=== PATIENT | male | born 1945 | race Caucasian/White ===

== ENCOUNTER 2018-12-21 23:59 | Emergency (ER) | payer OTHER ==
--- OUTSIDE RECORDS SUMMARY | 2018-12-22 00:06 | XMS REPORT ---
:1945 [facility] Address [address] [place] [address] [address]. [address] [place] [address] Care Team Providers Name Role Phone Unavailable Unavailable Unavailable Problems This patient has no known problems. Allergies, Adverse Reactions, Alerts This patient has no known allergies or adverse reactions. Medications This patient has no known medications.
--- OUTSIDE RECORDS SUMMARY | 2018-12-22 00:07 | XMS REPORT | Summary of Care ---
:1945 Author Organization [facility] - Health Address [address] [place] [address] Care Team Providers Name Role Phone Peter Melendez Primary Care Provider Reason for Visit Reason Comments Follow-up Diabetes Encounter Details Date Type Department Care Team Description 12/18/2018 Telephone [facility] Nazia Carrillo, RN Follow-up (Diabetes) [address] [place] [id number] Allergies No Known Allergiesdocumented as of this encounter (statuses as of 12/18/2018) Medications Medication Sig Dispensed Refills Start Date End Date Status GUANFACINE 1 MG ORAL once daily 0 Active TAB VERAPAMIL 360 MG ORAL once daily 0 Active C24P COQ10 SG 100 ORAL None Entered 0 Active CHOLEST OFF ORAL None Entered 0 Active CINNAMON ORAL None Entered 0 Active FISH OIL ORAL None Entered 0 Active LISINOPRIL 40 MG ORAL 1 by mouth 1 month supply 6 11/19/2008 Active TABIndications: every day Essential hypertension, benign HAWTHORN EXTRACT ORAL Take by 0 Active mouth. blood sugar before meals 3 Box 3 04/14/2010 Active diagnostic (PRECISION and at XTRA TEST) bedtime. stripIndications: 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) Insulin [place], before meals 3 Box 3 04/14/2010 Active Disposable, (BD and at INSULIN PEN NEEDLE bedtime. 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 atorvastatin 10 mg Take 10 mg by 0 Active tablet mouth at bedtime. irbesartan-hydrochlor Take 1 tablet 0 Active othiazide 300-12.5 mg by mouth per tablet daily. Magnesium Oxide 500 Take 2 0 Active mg Tab tablets by mouth daily. coconut oil 1,000 mg Take 4,000 mg 0 Active Cap by mouth daily. selenium 200 mcg Cap Take 1 0 Active capsule by mouth daily. folic acid 800 mcg Take 800 mcg 0 Active tablet by mouth daily. Alpha Lipoic Acid 200 Take 400 mg 0 Active mg Tab by mouth daily. Glucosamine Sulfate Take 2,000 mg 0 Active 1,000 mg Cap by mouth daily. turmeric root extract Take 1,000 mg 0 Active 500 mg Cap by mouth daily. prasterone, dhea, Take 100 mg 0 Active (DHEA) 50 mg Tab by mouth daily. Lycopene 10 mg Cap Take 20 mg by 0 Active mouth daily. BETA CAROTENE ORAL Take 25,000 0 Active Units by mouth daily. red yeast rice 600 mg Take 1,200 mg 0 Active Tab by mouth daily. DIPHENHYDRAMINE HCL Take 500 mg 0 Active (QUENALIN ORAL) by mouth daily. Garlic 1,000 mg Cap Take 1 0 Active capsule by mouth daily. vitamin C with uriel Take 1,000 mg 0 Active hips (VITAMIN C) by mouth 1,000 mg tablet daily. Ginkgo Biloba 120 mg Take 1 tablet 0 Active Tab by mouth daily. cholecalciferol, Take 1 tablet 0 Active vitamin D3, 10,000 by mouth unit Tab daily. coenzyme Q10 (CO Take 100 mg 0 Active Q-10) 100 mg softgel by mouth daily. FENUGREEK SEED Take 1,220 mg 0 Active EXTRACT ORAL by mouth daily. insulin lispro inject 15-22 3 Box 3 01/06/2018 Active (HUMALOG KWIKPEN Units under INSULIN) 100 unit/mL the skin 3 pen injector (three) times daily before meals. losartan-hydrochlorot 0 06/15/2018 Active hiazide 100-12.5 mg per tablet finasteride 5 mg Take 1 tablet 30 tablet 2 12/07/2018 Active tabletIndications: by mouth Gross hematuria, Type daily. 2 diabetes mellitus with complication, with long-term current use of insulin tamsulosin 0.4 mg 24 Take 1 30 capsule 2 12/07/2018 Active hr capsule by capsuleIndications: mouth daily. Gross hematuria, Type 2 diabetes mellitus with complication, with long-term current use of insulin docusate 100 mg Take 1 30 capsule 0 12/07/2018 Active capsuleIndications: capsule by Gross hematuria, Type mouth daily. 2 diabetes mellitus with complication, with long-term current use of insulin acetaminophen Take 2 40 tablet 0 12/07/2018 12/07/2019 Active (TYLENOL) 325 mg tablets by tabletIndications: mouth every 6 Gross hematuria, Type (six) hours 2 diabetes mellitus as needed for with complication, Pain (scale with long-term 1-3) or Pain current use of (scale 4-6). insulin oxybutynin chloride 5 Take 1 tablet 10 tablet 2 12/07/2018 Active mg tabletIndications: by mouth 2 Gross hematuria, Type (two) times 2 diabetes mellitus daily as with complication, needed for with long-term Bladder current use of spasms. insulin Insulin Glargine inject 25 45 mL 1 12/13/2018 Active (LANTUS SOLOSTAR Units under U-100 INSULIN) 100 the skin 2 unit/mL (3 mL) (two) times injectionIndications: daily. Type 2 diabetes mellitus with complication, with long-term current use of insulin documented as of this encounter (statuses as of 12/18/2018) Active Problems Problem Noted Date Gross hematuria 12/06/2018 Immunization counseling 05/01/2017 Type 2 diabetes mellitus with complication 05/01/2017 Essential hypertension 05/01/2017 Pain in both hands 05/01/2017 Bursitis, subacromial 05/01/2017 Type II or unspecified type diabetes mellitus with renal manifestations, 02/07 uncontrolled(250.42) Essential Hypertension, Benign 01/03/2009 documented as of this encounter (statuses as of 12/18/2018) Resolved Problems Problem Noted Date Resolved Date Polyarthralgia 05/01/2017 05/01/2017 Type II or unspecified type diabetes mellitus with 09/21/2008 02/07/2009 neurological manifestations, uncontrolled(250.62) documented as of this encounter (statuses as of 12/18/2018) Social History Tobacco Use Types Packs/Day Years Used Date Never Smoker Smokeless Tobacco: Never Used Alcohol Use Drinks/Week oz/Week Comments No Sex Assigned at Date Recorded Not on file Job Start Date Occupation Industry Not on file Not on file Not on file Travel History Travel Start Travel End No recent travel history available. documented as of this encounter Last Filed Vital Signs Not on filedocumented in this encounter Plan of Treatment Date Type Specialty Care Team Description 01/12/2019 Office Visit Urology Eloisa Scott FNP [address] [place] [address] [phone] 03/20/2019 Office Visit Endocrinology Diabetes & Reji Moise Metabolism [address] [place] [address] [phone] Health Maintenance Due Date Last Done Comments EYE EXAM 1955 DTaP,Tdap,and Td Vaccines (1 - 01/22/1964 Tdap) COLONOSCOPY 1995 Zoster Recombinant Vaccine 1995 (SHINGRIX) (1 of 2) Medicare Wellness Visit 2010 PNEUMOCOCCAL VACCINES 65+ (1 of 2 2010 - PCV13) INFLUENZA VACCINE (#1) 2018 HgA1C 06/05/2019 12/05/2018, 08/13/2018, 07/11/2018, Additional history exists FOOT EXAM 07/12/2019 07/11/2018, 07/11/2018, 03/07/2018, Additional history exists LDL-C 08/14/2019 08/13/2018 URINE MICROALBUMIN 08/14/2019 08/13/2018 CREATININE (SERUM) 12/07/2019 12/06/2018, 12/05/2018, 11/03/2018, Additional history exists HEPATITIS C (HCV) SCREEN Completed 11/03/2018 documented as of this encounter Implants Implanted Type Area Medical Esthetician Device Shelf Model / Serial Identifier Expiration / Lot Date Acrysof Iq LENS Right: Kartik 12/29/2020 [id number] / Implanted: Qty: 1 on 10/31/2016 by Philip Gonzalez MD at [facility] [id number] / [id number] Lens LENS Left: Eye Kartik 06/29/2021 [id number] / Implanted: Qty: 1 on 12/05/2016 by Philip Gonzalez MD at [facility] [id number] / [id number] documented as of this encounter Results Not on filedocumented in this encounter Insurance Payer Benefit Plan / Subscriber ID Effective Dates Phone Address Type Group MEDICARE MEDICARE PART A xxxxxxxxxxx 2009-[place] [phone] Medicare & [address] nt [id number] [place] [id number] AETNA AETNA INDEMNITY [id number] 2009-[place] Indemnity nt documented as of this encounter
--- OUTSIDE RECORDS SUMMARY | 2018-12-22 00:08 | XMS REPORT | Summary of Care ---
:1945 Author Organization [facility] - Health Address [address] [place] [address] Care Team Providers Name Role Phone Peter Melendez Primary Care Provider Reason for Visit Reason Comments Follow-up Diabetes Encounter Details Date Type Department Care Team Description 12/09/2018 Telephone [facility] Nazia Carrillo, RN Follow-up (Diabetes) [address] [place] [id number] Allergies No Known Allergiesdocumented as of this encounter (statuses as of 12/18/2018) Medications Medication Sig Dispensed Refills Start Date End Date Status GUANFACINE 1 MG ORAL once daily 0 Active TAB VERAPAMIL 360 MG once daily 0 Active ORAL C24P COQ10 SG 100 ORAL None Entered 0 Active CHOLEST OFF ORAL None Entered 0 Active CINNAMON ORAL None Entered 0 Active FISH OIL ORAL None Entered 0 Active LISINOPRIL 40 MG 1 by mouth 1 month supply 6 11/19/2008 Active ORAL TABIndications: every day Essential hypertension, benign HAWTHORN EXTRACT Take by 0 Active ORAL mouth. blood sugar before meals 3 Box 3 04/14/2010 Active diagnostic and at (PRECISION XTRA bedtime. 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 atorvastatin 10 mg Take 10 mg 0 Active tablet by mouth at bedtime. irbesartan-hydrochlo Take 1 0 Active rothiazide 300-12.5 tablet by mg per tablet mouth daily. Magnesium Oxide 500 Take 2 0 Active mg Tab tablets by mouth daily. coconut oil 1,000 mg Take 4,000 0 Active Cap mg by mouth daily. selenium 200 mcg Cap Take 1 0 Active capsule by mouth daily. folic acid 800 mcg Take 800 mcg 0 Active tablet by mouth daily. Alpha Lipoic Acid Take 400 mg 0 Active 200 mg Tab by mouth daily. Glucosamine Sulfate Take 2,000 0 Active 1,000 mg Cap mg by mouth daily. turmeric root Take 1,000 0 Active extract 500 mg Cap mg by mouth daily. prasterone, dhea, Take 100 mg 0 Active (DHEA) 50 mg Tab by mouth daily. Lycopene 10 mg Cap Take 20 mg 0 Active by mouth daily. BETA CAROTENE ORAL Take 25,000 0 Active Units by mouth daily. red yeast rice 600 Take 1,200 0 Active mg Tab mg by mouth daily. DIPHENHYDRAMINE HCL Take 500 mg 0 Active (QUENALIN ORAL) by mouth daily. Garlic 1,000 mg Cap Take 1 0 Active capsule by mouth daily. vitamin C with uriel Take 1,000 0 Active hips (VITAMIN C) mg by mouth 1,000 mg tablet daily. Ginkgo Biloba 120 mg Take 1 0 Active Tab tablet by mouth daily. cholecalciferol, Take 1 0 Active vitamin D3, 10,000 tablet by unit Tab mouth daily. coenzyme Q10 (CO Take 100 mg 0 Active Q-10) 100 mg softgel by mouth daily. FENUGREEK SEED Take 1,220 0 Active EXTRACT ORAL mg by mouth daily. insulin lispro inject 15-22 3 Box 3 01/06/2018 Active (HUMALOG KWIKPEN Units under INSULIN) 100 unit/mL the skin 3 pen injector (three) times daily before meals. losartan-hydrochloro 0 06/15/2018 Active thiazide 100-12.5 mg per tablet finasteride 5 mg Take 1 30 tablet 2 12/07/2018 Active tabletIndications: tablet by Gross hematuria, mouth daily. Type 2 diabetes mellitus with complication, with long-term current use of insulin tamsulosin 0.4 mg 24 Take 1 30 capsule 2 12/07/2018 Active hr capsule by capsuleIndications: mouth daily. Gross hematuria, Type 2 diabetes mellitus with complication, with long-term current use of insulin docusate 100 mg Take 1 30 capsule 0 12/07/2018 Active capsuleIndications: capsule by Gross hematuria, mouth daily. Type 2 diabetes mellitus with complication, with long-term current use of insulin acetaminophen Take 2 40 tablet 0 12/07/2018 12/07/19 Active (TYLENOL) 325 mg tablets by 20 tabletIndications: mouth every Gross hematuria, 6 (six) Type 2 diabetes hours as mellitus with needed for complication, with Pain (scale long-term current 1-3) or Pain use of insulin (scale 4-6). oxybutynin chloride Take 1 10 tablet 2 12/07/2018 Active 5 mg tablet by tabletIndications: mouth 2 Gross hematuria, (two) times Type 2 diabetes daily as mellitus with needed for complication, with Bladder long-term current spasms. use of insulin Insulin Glargine inject 27 2 Box 3 04/14/2010 12/14/19 Discontinued (LANTUS SOLOSTAR) Units under 19 100 unit/mL (3 mL) the skin at InPnIndications: bedtime. 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) documented as of this encounter (statuses as [...] [address] [place] [address] [phone] 03/20/2019 Office Visit Endocrinology Diabetes & Reji Moise Metabolism [address] [place] [address] [phone] Health Maintenance Due Date Last Done Comments [...] of this encounter Implants Implanted Type Area Entry Level Financial Analyst Device Shelf Model / Serial Identifier Expiration / Lot Date Acrysof Iq LENS Right: Kartik 12/29/2020 [id number] / Implanted: Qty: 1 on 10/31/2016 by Philip Gonzalez MD at [facility] [id number] / [id number] Lens LENS Left: Eye Kartik 06/29/2021 [id number] / Implanted: Qty: 1 on 12/05/2016 by Philip Gonzalez MD at [facility] [id number] / [id number] documented as of this encounter Results Not on filedocumented in this encounter Insurance Payer Benefit Plan / Subscriber ID Effective Dates Phone Address Type Group MEDICARE MEDICARE PART A xxxxxxxxxxx 2009-[place] [phone] Medicare & B nt [id number] [place] [id number] AETNA AETNA INDEMNITY [id number] 2009-[place] Indemnity nt documented as of this encounter
--- OUTSIDE RECORDS SUMMARY | 2018-12-22 00:08 | XMS REPORT | Summary of Care ---
:1945 Author Organization [facility] - [facility] Address [address] [place] [id number] Care Team Providers Name Role Phone Peter Melendez Primary Care Provider Reason for Visit Reason Comments Refill Request Encounter Details Date Type Department Care Team Description 12/19/2018 Telephone [facility] Endocrinology- Reji Moise Refill Request [address] Professional Office [address] [place] [address] [place] [address] [address] [place] [address] Allergies No Known Allergiesdocumented as of this encounter (statuses as of 12/19/2018) Medications Medication Sig Dispensed Refills Start Date [...] diabetes mellitus with renal manifestations, uncontrolled(250.42) Insulin [place], before meals 3 Box 3 04/14/2010 Active [...] spasms. use of insulin Insulin Glargine inject 25 45 mL 1 12/19/2018 Active (LANTUS SOLOSTAR Units under U-100 INSULIN) 100 the skin 2 unit/mL (3 mL) (two) times injectionIndications daily. : Type 2 diabetes mellitus with complication, with long-term current use of insulin Insulin Glargine inject 25 45 mL 1 12/13/2018 12/20/19 Discontinued (LANTUS SOLOSTAR Units under 19 U-100 INSULIN) 100 the skin 2 unit/mL (3 mL) (two) times injectionIndications daily. : Type 2 diabetes mellitus with complication, with long-term current use of insulin documented as of this encounter (statuses as of 12/19/2018) Active Problems Problem Noted Date Gross hematuria 12/06/2018 Immunization counseling 05/01/2017 Type 2 diabetes mellitus with complication 05/01/2017 Essential hypertension 05/01/2017 Pain in both hands 05/01/2017 Bursitis, subacromial 05/01/2017 Type II or unspecified type diabetes mellitus with renal manifestations, 02/07 uncontrolled(250.42) Essential Hypertension, Benign 01/03/2009 documented as of this encounter (statuses as of 12/19/2018) Resolved Problems Problem Noted Date Resolved Date Polyarthralgia 05/01/2017 05/01/2017 Type II or unspecified type diabetes mellitus with 09/21/2008 02/07/2009 neurological manifestations, uncontrolled(250.62) documented as of this encounter (statuses as of 12/19/2018) Social History Tobacco Use Types Packs/Day Years [...] Team Description 01/12/2019 Office Visit Urology Eloisa Scott, WASH TANK TENDER [address] [address] [place], [place] [address] 03/20/2019 Office Visit Endocrinology Diabetes & Reji Moise Metabolism [address] [place] [address] [address] [place], [place] [phone] Health Maintenance Due Date Last Done Comments [...] of this encounter Implants Implanted Type Area Basic Combatant Swimmer Device Shelf Model / Serial Identifier Expiration / Lot Date Acrysof Iq LENS Right: Kartik 12/29/2020 [id number] / Implanted: Qty: 1 on 10/31/2016 by Philip Gonzalez MD at [facility] [id number] / [id number] Lens LENS Left: Eye Kartik 06/29/2021 [id number] / Implanted: Qty: 1 on 12/05/2016 by Philip Gonzalez MD at [facility] [id number] / [id number] documented as of this encounter Results Not on filedocumented in this encounter Visit Diagnoses Diagnosis Type 2 diabetes mellitus with complication, with long-term current use of insulin documented in this encounter Insurance Payer Benefit Plan / Subscriber ID Effective Dates Phone Address Type Group MEDICARE MEDICARE PART A xxxxxxxxxxx 2009Patrizia [phone] Medicare & B nt 82 [id number] [place] [id number] AETNA AETNA INDEMNITY [id number] 2009Patrizia Indemnity nt documented as of this encounter
[2018-12-22 00:24] LABS: Urine Blood 2+ (NEG); Urine Glucose 2+ (NEG); Urine Protein 2+ (NEG)
[2018-12-22 01:05] LABS: Absolute Lymphocytes (CBC) 0.8 K/uL (0.7-4.9); Basophils % 0.3 % (0-1.3); Hematocrit 37.5 % (39.6-49.0); MPV 7.5 fL (7.6-11.3); RBC Red Blood Cell Count 4.43 M/uL (4.33-5.43)
[2018-12-22 01:28] LABS: Albumin 2.9 g/dL (3.4-5.0); Bilirubin Direct 0.1 mg/dL (0-0.2); Bilirubin Total 0.3 mg/dL (0.2-1.0); CKMB Creatine Kinase MB 1.2 ng/mL (0.3-3.6); Potassium 4.1 mmol/L (3.5-5.1); Protein, Total 6.6 g/dL (6.4-8.2)
[2018-12-22 01:33] LABS: Urine Bacteria <20 /HPF (NONE SEEN); Urine Culture Reflex Order NOT NEEDED; Urine RBC >50 /HPF (NONE SEEN)
--- NOTE | 2018-12-22 02:31 | ER ---
Nurse's Notes [facility] Name: Lito Powell Age: 73 yrs Sex: Male : 1945 Arrival Date: 12/22/2018 Time: 00:04 Bed 2 Private MD: Diagnosis: Bronchitis, not specified as acute or chronic Presentation: 12/22 00:05 Presenting complaint: EMS states: they were toned out for report of pt having fever bb after having TURP procedure by Dr Camarillo on the . On their arrival pt's temp was 102.5 he had taken tylenol approx 45 mins prior to their arrival. Transition of care: patient was not received from another setting of care. Onset of symptoms was December 22, 2018. Risk Assessment: Do you want to hurt yourself or someone else? Patient reports no desire to harm self or others. Initial Sepsis Screen: Does the patient meet any 2 criteria? No. Patient's initial sepsis screen is negative. Does the patient have a suspected source of infection? Yes: Catheter related infection (Dueñas/dialysis/PICC/central line). Care prior to arrival: IV initiated. 18 GA, in the right antecubital area. 00:05 Method Of Arrival: EMS: [facility] bb 00:05 Acuity: LADONNA 2 bb Triage Assessment: 01:10 General: Appears in no apparent distress. Behavior is calm, cooperative. Pain: Denies ak1 pain. EENT: No signs and/or symptoms were reported regarding the EENT system. Neuro: Level of Consciousness is awake, alert, obeys commands, Oriented to person, place, time, situation, Moves all extremities. Speech is normal. Historical: - Allergies: 00:14 No Known Allergies; bb - Home Meds: 00:14 Cardizem Oral [Active]; amlodipine oral [Active]; Lantus Sub-Q [Active]; valsartan oral bb oral [Active]; Plavix Oral [Active]; Magnesium Oxide Oral [Active]; aspirin 81 mg Oral chew [Active]; multiple supplements [Active]; - PMHx: 00:14 BPH; Diabetes - IDDM; Hypertension; CAD; bb - PSHx: 00:14 CABG; TURP; Bunionectomy; bb - Immunization history:: Adult Immunizations unknown. - Social history:: Smoking status: Patient/guardian denies using tobacco, Patient/guardian denies using alcohol. - Ebola Screening: : No symptoms or risks identified at this time. Screenin:26 Abuse screen: Denies threats or abuse. Denies injuries from another. Nutritional rr5 screening: No deficits noted. Tuberculosis screening: No symptoms or risk factors identified. Fall Risk IV access (20 points). Total Bolden Fall Scale indicates No Risk (0-24 pts). Assessment: 01:12 Reassessment: Patient appears in no apparent distress at this time. No changes from ak1 previously documented assessment. Patient and/or family updated on plan of care and expected duration. Pain level reassessed. Patient is alert, oriented x 3, equal unlabored respirations, skin warm/dry/pink. General: Appears in no apparent distress. Behavior is calm, cooperative. 02:55 Reassessment: Patient appears in no apparent distress at this time. Patient and/or rr5 family updated on plan of care and expected duration. Pain level reassessed. Patient is alert, oriented x 3, equal unlabored respirations, skin warm/dry/pink. ED provider spoke to dr. camarillo with order to remove the dueñas catheter. 03:00 Reassessment: Patient appears in no apparent distress at this time. Patient and/or rr5 family updated on plan of care and expected duration. Pain level reassessed. Patient is alert, oriented x 3, equal unlabored respirations, skin warm/dry/pink. for discharge awaiting for the flu test result. 03:20 Reassessment: reassess by ED provider patient can go home. rr5 04:10 Reassessment: Patient appears in no apparent distress at this time. Patient and/or rr5 family updated on plan of care and expected duration. Pain level reassessed. Patient is alert, oriented x 3, equal unlabored respirations, skin warm/dry/pink. discharge instruction given and explained to patient without complaints made, verbalized understanding. Vital Signs: 00:14 BP 158 / 76; Pulse 89; Resp 16 S; Temp 97.9(O); Pulse Ox 95% on R/A; Weight 83.91 kg bb (R); Height 5 ft. 11 in. (180.34 cm) (R); Pain 6/10; 01:11 BP 154 / 71; Pulse 83; Resp 20; Pulse Ox 95% on R/A; ak1 02:00 BP 146 / 85; Pulse 80; Resp 19; Pulse Ox 98% ; rr5 03:00 BP 159 / 89; Pulse 79; Resp 16; Pulse Ox 100% ; rr5 04:00 BP 141 / 70; Pulse 80; Resp 17; Temp 97.8; Pulse Ox 99% ; Pain 0/10; rr5 00:14 Body Mass Index 25.80 (83.91 kg, 180.34 cm) bb ED Course: 00:04 Patient arrived in ED. em1 00:05 All Wakefield MD is Attending Physician. tw4 00:10 Triage completed. bb 00:10 Maintain EMS IV. Dressing intact. Good blood return noted. Site clean \T\ dry. Gauge \T\ rr 5 site: G 18 at right Ac. 00:10 in with Dueñas catheter connected to urine bag, draining yellow arvind in color urine. rr5 00:14 Arm band placed on Patient placed in an exam room, on a stretcher, on quality assurance monitor chassis, bb on pulse oximetry. EKG completed in triage. Results shown to MD. 00:15 Inserted saline lock: 20 gauge in left forearm, using aseptic technique. Blood rr5 collected. 00:15 First set of blood cultures drawn by me. rr5 01:10 Arvind Chowdary, RN is Primary Nurse. ak1 01:10 Patient has correct armband on for positive identification. Placed in gown. Bed in low ak1 position. Call light in reach. Side rails up X2. Adult w/ patient. potline monitor on. Pulse ox on. NIBP on. 01:15 Second set of blood cultures drawn by me. rr5 01:56 Chest Single View XRAY In Process Unspecified. EDMS 02:50 Flu and/or RSV swab sent to lab. rr5 02:55 Patient tolerated well. Dueñas cath removed intact, balloon deflated. rr5 04:14 No provider procedures requiring assistance completed. IV discontinued, intact, rr5 bleeding controlled, No redness/swelling at site. Pressure dressing applied. Administered Medications: 00:24 Drug: NS 0.9% 1000 ml Route: IV; Rate: 125 ml/hr; Site: right antecubital; ak1 04:15 Follow up: Response: No adverse reaction; IV Status: Order to discontinue infusion; IV rr5 Intake: 375ml Point of Care Testing: Blood Glucose: 00:20 Blood Glucose: 145 mg/dL; rr5 Ranges: Intake: 04:15 IV: 375ml; Total: 375ml. rr5 Outcome: 02:29 Discharge ordered by . tw4 04:10 Discharged to home via wheelchair, with family. rr5 04:10 Condition: stable 04:10 Discharge instructions given to patient, Instructed on discharge instructions, follow up and referral plans. medication usage, Demonstrated understanding of instructions, follow-up care, medications, Prescriptions given X 3. 04:15 Patient left the ED. rr5 Signatures: Dispatcher [employer] EDMS Faye Cano RN RN Ernie Liz em1 Arvind Chowdary RN RN ak1 All Wakefield MD MD tw4 Mark Polanco, RN RN rr5
--- NOTE | 2018-12-22 02:32 | EDPHYS ---
Physician Documentation [facility] Name: Lito Powell Age: 73 yrs Sex: Male : 1945 Arrival Date: 12/22/2018 Time: 00:04 Bed 2 Private MD: ED Physician All Wakefield HPI: 12/22 01:37 This 73 yrs old Male presents to ER via EMS with complaints of fever after tw4 surgery 4 days ago TURP . 01:37 The patient reports fever, not measured (subjective). Onset: The symptoms/episode tw4 began/occurred today. Modifying factors: there are no obvious modifying factors. 01:42 Associated signs and symptoms: Pertinent positives: cough, Pertinent negatives: tw4 abdominal pain, altered mental status, arthralgias, backache, diarrhea, pulling at ears, earache. The patient has not experienced similar symptoms in the past. Historical: - Allergies: 00:14 No Known Allergies; bb - Home Meds: 00:14 Cardizem Oral [Active]; amlodipine oral [Active]; Lantus Sub-Q [Active]; valsartan oral bb oral [Active]; Plavix Oral [Active]; Magnesium Oxide Oral [Active]; aspirin 81 mg Oral chew [Active]; multiple supplements [Active]; - PMHx: 00:14 BPH; Diabetes - IDDM; Hypertension; CAD; bb - PSHx: 00:14 CABG; TURP; Bunionectomy; bb - Immunization history:: Adult Immunizations unknown. - Social history:: Smoking status: Patient/guardian denies using tobacco, Patient/guardian denies using alcohol. - Ebola Screening: : No symptoms or risks identified at this time. ROS: 01:42 Neck: Negative for injury, pain, and swelling, Cardiovascular: Negative for chest pain, tw4 palpitations, and edema, Abdomen/GI: Negative for abdominal pain, nausea, vomiting, diarrhea, and constipation, Back: Negative for injury and pain, MS/Extremity: Negative for injury and deformity, Skin: Negative for injury, rash, and discoloration, Neuro: Negative for headache, weakness, numbness, tingling, and seizure. 01:42 Constitutional: Positive for fatigue, fever, Negative for body aches, chills, poor PO intake, weight loss. 01:42 Respiratory: Positive for cough, Negative for dyspnea on exertion, hemoptysis, orthopnea, pleurisy, shortness of breath, sputum production, wheezing. Exam: 01:42 Constitutional: This is a well developed, well nourished patient who is awake, alert, tw4 and in no acute distress. Head/Face: Normocephalic, atraumatic. Eyes: Pupils equal round and reactive to light, extra-ocular motions intact. Lids and lashes normal. Conjunctiva and sclera are non-icteric and not injected. Cornea within normal limits. Periorbital areas with no swelling, redness, or edema. Chest/axilla: Normal chest wall appearance and motion. Nontender with no deformity. No lesions are appreciated. Cardiovascular: Regular rate and rhythm with a normal S1 and S2. No gallops, murmurs, or rubs. Normal PMI, no JVD. No pulse deficits. Respiratory: Lungs have equal breath sounds bilaterally, clear to auscultation and percussion. No rales, rhonchi or wheezes noted. No increased work of breathing, no retractions or nasal flaring. Abdomen/GI: Soft, non-tender, with normal bowel sounds. No distension or tympany. No guarding or rebound. No evidence of tenderness throughout. Back: No spinal tenderness. No costovertebral tenderness. Full range of motion. MS/ Extremity: Pulses equal, no cyanosis. Neurovascular intact. Full, normal range of motion. Neuro: Awake and alert, GCS 15, oriented to person, place, time, and situation. Cranial nerves II-XII grossly intact. Motor strength 5/5 in all extremities. Sensory grossly intact. Cerebellar exam normal. Normal gait. Vital Signs: 00:14 BP 158 / 76; Pulse 89; Resp 16 S; Temp 97.9(O); Pulse Ox 95% on R/A; Weight 83.91 kg bb (R); Height 5 ft. 11 in. (180.34 cm) (R); Pain 6/10; 01:11 BP 154 / 71; Pulse 83; Resp 20; Pulse Ox 95% on R/A; ak1 02:00 BP 146 / 85; Pulse 80; Resp 19; Pulse Ox 98% ; rr5 03:00 BP 159 / 89; Pulse 79; Resp 16; Pulse Ox 100% ; rr5 04:00 BP 141 / 70; Pulse 80; Resp 17; Temp 97.8; Pulse Ox 99% ; Pain 0/10; rr5 00:14 Body Mass Index 25.80 (83.91 kg, 180.34 cm) bb MDM: 00:05 Patient medically screened. tw 02:30 Differential diagnosis: viral Infection, bacterial infection, URI, bronchitis, tw4 pneumonia UTI. Data reviewed: vital signs, nurses notes. Data reviewed: lab test result(s), CBC, white blood cell count, hemoglobin, hematocrit, platelets, electrolytes, sodium, potassium, chloride, serum bicarbonate, BUN, creatinine, serum glucose. Data interpreted: Pulse oximetry: Interpretation: normal. Test interpretation: by ED physician or midlevel provider: ECG, plain radiologic studies. Counseling: I had a detailed discussion with the patient and/or guardian regarding: the historical points, exam findings, and any diagnostic results supporting the discharge/admit diagnosis, lab results, radiology results. Physician consultation: Elizabeth Camarillo MD was contacted at 02:28, regarding patient's condition, need to evaluate the patient as soon as possible, and will see patient in office. 12/22 00:07 Order name: Blood Culture Adult (2) 12/22 00:07 Order name: CBC with Diff; Complete Time: 01:36 12/22 01:35 Interpretation: Normal except: WBC 10.9; HGB 13.0; HCT 37.5; LYM% 7.0; RAMYA% 82.6; MPV tw4 7.5; NEUT A 9.0. 12/22 00:07 Order name: Ckmb; Complete Time: 01:36 12/22 01:36 Interpretation: Within normal limits: CKMB 1.2. 12/22 00:07 Order name: CPK; Complete Time: 01:36 12/22 01:36 Interpretation: Within normal limits: CPK 94. 12/22 00:07 Order name: Lactate; Complete Time: 01:36 12/22 01:36 Interpretation: Within normal limits: LAC 1.6. 12/22 00:07 Order name: LFT's; Complete Time: 01:36 12/22 01:36 Interpretation: Within normal limits: BILID 0.1. 12/22 00:07 Order name: Lipase; Complete Time: 01:36 12/22 01:36 Interpretation: Within normal limits: LIP 338. 12/22 00:07 Order name: Procalcitonin; Complete Time: 03:41 12/22 00:07 Order name: Protime (+inr); Complete Time: 01:36 12/22 01:36 Interpretation: Within normal limits: PT 11.8. 12/22 00:07 Order name: Ptt, Activated; Complete Time: 01:36 12/22 01:36 Interpretation: Within normal limits: PTT 29.3. 12/22 00:07 Order name: Urine Microscopic Only; Complete Time: 01:36 12/22 01:35 Interpretation: Normal except: URBC >50. 12/22 00:07 Order name: CMP; Complete Time: 01:36 12/22 01:35 Interpretation: Normal except: GLUC 137; BUN 19; GFR 58. 12/22 00:11 Order name: Urine Dipstick--Ancillary (enter results) em1 12/22 00:25 Order name: Urine Dipstick-Ancillary EDTN 12/22 00:07 Order name: Chest Single View XRAY 12/22 00:07 Order name: Accucheck; Complete Time: 00:32 12/22 00:07 Order name: Cardiac monitoring; Complete Time: 00:13 12/22 00:07 Order name: IV Saline Lock - Large Bore; Complete Time: 00:24 12/22 00:07 Order name: Labs collected and sent; Complete Time: 00:24 12/22 00:07 Order name: O2 Per Protocol; Complete Time: 00:13 12/22 00:07 Order name: O2 Sat Monitoring; Complete Time: 00:13 12/22 00:07 Order name: Urine Dipstick-Ancillary (obtain specimen); Complete Time: 00:09 12/22 01:00 Order name: Glucose, Ancillary Testing; Complete Time: 01:36 EDTN 12/22 01:35 Interpretation: Normal except: GLUC,ANCIL 145. 12/22 02:28 Order name: Flu; Complete Time: 03:41 12/22 02:51 Order name: Misc. Order: remove dueñas catheter; Complete Time: 02:51 rr5 EC:40 Rate is 91 beats/min. Rhythm is regular. QRS [place] is Normal. OK interval is normal. QRS tw4 interval is normal. QT interval is normal. No Q waves. T waves are Inverted in lead III. No ST changes noted. Clinical impression: NSR w/ Non-specific ST/T Changes. Interpreted by me. Reviewed by me. Administered Medications: 00:24 Drug: NS 0.9% 1000 ml Route: IV; Rate: 125 ml/hr; Site: right antecubital; ak1 04:15 Follow up: Response: No adverse reaction; IV Status: Order to discontinue infusion; IV rr5 Intake: 375ml Point of Care Testing: Blood Glucose: 00:20 Blood Glucose: 145 mg/dL; rr5 Ranges: Critical Glucose Levels:Adult <50 mg/dl or >400 mg/dl <40 mg/dl or >180 mg/dl Disposition: 12/22/18 02:29 Discharged to Home. Impression: Bronchitis, not specified as acute or chronic. - Condition is Stable. - Discharge Instructions: Acute Bronchitis, Adult, Fever, Adult. - Prescriptions for Tessalon Perles 100 mg Oral Capsule - take 1 capsule by ORAL route every 8 hours As needed; 15 capsule. Albuterol Sulfate 90 mcg/actuation - inhale 1-2 puff by INHALATION route every 4-6 hours; 1 Inhaler. Guaifenesin AC 10- 100 mg/5 mL Oral Liquid - take 10 milliliter by ORAL route every 4 hours As needed; 240 milliliter. - Medication Reconciliation Form, Thank You Letter, Antibiotic Education, Prescription Opioid Use form. - Follow up: Private Physician; When: Upon discharge from the Emergency Department; Reason: If symptoms return, Recheck today's complaints, Continuance of care. - Problem is new. - Symptoms have improved. Signatures: Dispatcher [employer] EDFaye Miles RN RN Luana Dickens RN RN ak1 All Wakefield MD MD tw4 Mark Polanco RN RN rr5 Corrections: (The following items were deleted from the chart) 01:44 01:42 Constitutional: Negative for fever, chills, and weight loss, Eyes: Negative for tw4 injury, pain, redness, and discharge, Cardiovascular: Negative for chest pain, palpitations, and edema, Abdomen/GI: Negative for abdominal pain, nausea, vomiting, diarrhea, and constipation, Back: Negative for injury and pain, MS/Extremity: Negative for injury and deformity, Skin: Negative for injury, rash, and discoloration, Neuro: Negative for headache, weakness, numbness, tingling, and seizure, tw4 04:15 02:29 12/22/2018 02:29 Discharged to Home. Impression: Bronchitis, not specified as rr5 acute or chronic. Condition is Stable. Forms are Medication Reconciliation Form, Thank You Letter, Antibiotic Education, Prescription Opioid Use. Follow up: Private Physician; When: Upon discharge from the Emergency Department; Reason: If symptoms return, Recheck today's complaints, Continuance of care. Problem is new. Symptoms have improved. tw4
[2018-12-22 04:23] VITALS: TEMP 97.9; O2SAT 95
[2018-12-22 04:24] VITALS: BP 154/71
--- NOTE | 2018-12-22 08:16 | RAD REPORT ---
EXAM DESCRIPTION: RAD - Chest Single View - 12/22/2018 1:55 am CLINICAL HISTORY: FEVER Chest pain. COMPARISON: Chest Pa And Lat (2 Views) dated 12/10/2018; CHEST SINGLE VIEW dated 07/20/2010 FINDINGS: Portable technique limits examination quality. The lungs are grossly clear. The heart is mildly enlarged in size with sternotomy wires present. No d isplaced fractures. IMPRESSION: No acute intrathoracic process suspected.
--- NOTE | 2018-12-22 13:37 | EKG ---
Test Date: 2018-12-22 Test Time: 00:06:02 Securities Dealer: RR MEASUREMENT RESULTS: Intervals: Rate: 91 WV: 280 QRSD: 78 QT: 384 QTc: 472 [place]: P: WV: 280 QRS: 51 T: 37 INTERPRETIVE STATEMENTS: Sinus rhythm with first degree AV block Low voltage QRS Abnormal ECG Compared to ECG 12/10/2018 10:47:08 Low QRS voltage now present Sinus bradycardia no longer present Myocardial infarct finding no longer present Electronically Signed On 12-22-18 13:37:01 CDT by Yadiel Vicente
== END 2018-12-22 04:15 | disposition home or self-care (01) ==
LOC: ER 23:59
DX: J40 Bronchitis, not specified as acute or chronic (principal); I10 Essential (primary) hypertension; E11.9 Type 2 diabetes mellitus without complications; Z79.01 Long term (current) use of anticoagulants; Z79.4 Long term (current) use of insulin; Z95.1 Presence of aortocoronary bypass graft; Z98.890 Other specified postprocedural states
CPT/HCPCS: 36415; 71045; 80053; 80076; 81003; 81015; 82550; 82553; 82962; 83605; 83690; 84145; 85025; 85610; 85730; 87040; 87804; 93005; 96360; 96361; 99285

== ENCOUNTER 2019-01-03 15:08 | Inpatient (IN) | payer OTHER ==
[2019-01-03 15:51] LABS: Urine Appearance TURBID; Urine Blood 3+ (NEG); Urine Color RED; Urine Glucose NEGATIVE (NEG); Urine Protein 3+ (NEG); Urine Specific Gravity <=1.005 (1.005-1.030)
[2019-01-03 16:04] LABS: Urine Bacteria <20 /HPF (NONE SEEN); Urine Culture Reflex Order NOT NEEDED; Urine RBC TNTC /HPF (NONE SEEN)
[2019-01-03 16:21] LABS: Absolute Lymphocytes (CBC) 2.3 K/uL (0.7-4.9); Basophils % 1.5 % (0-1.3); Hematocrit 38.5 % (39.6-49.0); Lymphocytes % 20.5 % (15.3-44.8); MPV 6.9 fL (7.6-11.3); RBC Red Blood Cell Count 4.52 M/uL (4.33-5.43)
[2019-01-03 16:25] LABS: Protime INR 1.01
[2019-01-03 16:31] LABS: ALT/SGPT 25 U/L (12-78); AST/SGOT 15 U/L (15-37); Albumin 3.5 g/dL (3.4-5.0); Alkaline Phosphatase 66 U/L (45-117); BUN Blood Urea Nitrogen 22 mg/dL (7-18); Bicarbonate 26 mmol/L (21-32); Bilirubin Direct 0.1 mg/dL (0-0.2); Bilirubin Total 0.4 mg/dL (0.2-1.0); Glucose Level 144 mg/dL (74-106); Magnesium 1.8 mg/dL (1.8-2.4); NT PRO-BNP 276 pg/mL (<125); Potassium 4.2 mmol/L (3.5-5.1); Protein, Total 7.3 g/dL (6.4-8.2); Sodium Level 136 mmol/L (136-145); Troponin (Emerg Dept Use Only) < 0.02 ng/mL (0.0-0.045)
[2019-01-03 16:32] LABS: Urine Bilirubin 3+ (NEG)
[2019-01-03] MEDS ORDERED: LIDOCAINE VISCOUS 2% SOLN 15 ML UDC ONE (16:34)
[2019-01-03] MEDS ORDERED: NA CHLORIDE 0.9% 0 ML ONE (16:38)
[2019-01-03] MEDS ORDERED: NACL 0.9% IRR SOLN 2,000 ML IRR ONE (16:39)
[2019-01-03] MEDS ORDERED: NA CHLORIDE 0.9% 1,000 ML ONE (17:05)
[2019-01-03] MEDS ORDERED: CEFTRIAXONE/SWI 1gm 1 GM/10 ML SYR ONE (18:03)
--- NOTE | 2019-01-03 19:08 | EDPHYS ---
Physician Documentation [facility] Name: Lito Powell Age: 73 yrs Sex: Male : 1945 Arrival Date: 01/03/2019 Time: 15:10 Bed 20 Private MD: ED Physician Milad Torres HPI: 01/03 15:24 This 73 yrs old Male presents to ER via Ambulatory with complaints of Urinary cp Problem - bleeding. 15:25 The patient presents with urinary symptoms, hematuria. cp 15:25 Onset: The symptoms/episode began/occurred at an unknown time. Associated signs and cp symptoms: Pertinent positives: hematuria, Pertinent negatives: abdominal pain, constipation, diarrhea, fever, vomiting. Severity of symptoms: in the emergency department the symptoms are unchanged, despite home interventions. Patient reports having TURP procedure performed by DR Camarillo on 12-16-2018. Had f/u appt on 12-24-2018 and denies noticing any urinary bleeding at that time. Patient reports he resumed taking oral Plavix and aspirin the next day and gradually noticed blood in urine. Patient reports contacting office of DR Camarillo today. Historical: - Allergies: 15:18 No Known Allergies; aj1 - Home Meds: 15:18 Plavix Oral [Active]; aspirin 81 mg Oral chew [Active]; amlodipine oral [Active]; aj1 Cardizem Oral [Active]; Lantus Sub-Q [Active]; Magnesium Oxide Oral [Active]; multiple supplements [Active]; valsartan Oral [Active]; - PMHx: 15:18 BPH; CAD; Diabetes - IDDM; Hypertension; aj1 - PSHx: 15:18 TURP; aj1 - Immunization history:: Flu vaccine is not up to date. - Social history:: Smoking status: Patient/guardian denies using tobacco. - Ebola Screening: : Patient denies travel to an Ebola-affected area in the 21 days before illness onset. ROS: 15:30 Constitutional: Negative for body aches, chills, fever, poor PO intake. cp 15:30 Eyes: Negative for injury, pain, redness, and discharge. cp 15:30 ENT: Negative for drainage from ear(s), ear pain, sore throat, difficulty swallowing, difficulty handling secretions. 15:30 Cardiovascular: Positive for edema, Negative for chest pain, palpitations. 15:30 Respiratory: Negative for cough, shortness of breath, wheezing. 15:30 Abdomen/GI: Negative for abdominal pain, nausea, vomiting, and diarrhea, constipation, black/tarry stool, rectal bleeding. 15:30 Back: Negative for pain at rest, pain with movement. 15:30 : Positive for hematuria, Negative for pelvic pain, bladder incontinence, penile pain, testicular pain 15:30 Skin: Negative for cellulitis, rash. 15:30 Neuro: Negative for altered mental status, headache, syncope, weakness. 15:30 All other systems are negative. Exam: 15:35 Constitutional: The patient appears in no acute distress, alert, awake, cp non-diaphoretic, non-toxic, well developed, well nourished. 15:35 Head/Face: Normocephalic, atraumatic. cp 15:35 Eyes: Periorbital structures: appear normal, Conjunctiva: normal, no exudate, no injection, Sclera: no appreciated abnormality, Lids and lashes: appear normal, bilaterally. 15:35 ENT: External ear(s): are unremarkable, Nose: is normal, Mouth: Lips: moist, Oral mucosa: pink and intact, moist, Posterior pharynx: is normal, airway is patent. 15:35 Chest/axilla: Inspection: normal, Palpation: is normal, no crepitus, no tenderness. 15:35 Cardiovascular: Rate: bradycardic, Rhythm: regular, Edema: is not appreciated, JVD: is not appreciated. 15:35 Respiratory: the patient does not display signs of respiratory distress, Respirations: normal, no use of accessory muscles, no retractions, no splinting, no tachypnea, labored breathing, is not present, Breath sounds: are clear throughout, no decreased breath sounds, no stridor, no wheezing. 15:35 Abdomen/GI: Inspection: abdomen appears normal, Bowel sounds: active, all quadrants, Palpation: abdomen is soft and non-tender, in all quadrants, rebound tenderness, is not appreciated, voluntary guarding, is not appreciated, involuntary guarding, is not appreciated. 15:35 Back: CVA tenderness, is absent. 15:35 Skin: no rash present. 15:35 Neuro: Orientation: to person, place \T\ time. Mentation: is normal. 16:25 ECG was reviewed by the Attending Physician. Vital Signs: 15:18 BP 161 / 70; Pulse 50; Resp 20; Temp 97.8; Pulse Ox 98% on R/A; Weight 82.55 kg (R); aj1 Height 5 ft. 11 in. (180.34 cm) (R); Pain 0/10; 16:30 BP 165 / 72; Pulse 49; Resp 18; Pulse Ox 99% on R/A; em 18:10 BP 161 / 69; Pulse 59; Resp 18; Pulse Ox 99% on R/A; Pain 0/10; em 19:25 BP 181 / 74; Pulse 54; Resp 18; Pulse Ox 99% on R/A; ea 20:18 BP 167 / 55; Pulse 50; Resp 17; Pulse Ox 97% on R/A; mt 15:18 Body Mass Index 25.38 (82.55 kg, 180.34 cm) aj1 MDM: 15:29 Patient medically screened. cp 16:00 Differential diagnosis: UTI, urinary retention, prostatitis, anemia. 18:11 Physician consultation: Elizabeth Camarillo MD was called at 18:11, left message on cp voicemail. 18:44 Physician consultation: Elizabeth Camarillo MD was called at 18:44, left message on cp voicemail. 19:00 Physician consultation: Elizabeth Camarillo MD was contacted at 19:00, regarding patient's cp condition. 19:03 Physician consultation: Juan Luis Cole MD was called at 19:03, was contacted at 19:03, cp regarding admission, to the telemetry unit. patient's condition, and will see patient in ED. 19:05 Data reviewed: vital signs, nurses notes, lab test result(s), I have discussed the cp patient's presentation/case with the attending Emergency Department Physician; and as a result, I will admit patient. 01/03 15:40 Order name: Urinalysis W/Microscopic; Complete Time: 16:49 EDMS 01/03 16:50 Interpretation: Normal except: UBILI 3+; UKET 1+; UBLD 3+; UPROT 3+; U NIT POSITIVE; cp UESTR 2+; URBC TNTC. 01/03 15:43 Order name: Basic Metabolic Panel; Complete Time: 16:49 cp 01/03 16:50 Interpretation: Normal except: GLUC 144; BUN 22; GFR 61. cp 01/03 15:43 Order name: CBC with Diff; Complete Time: 16:49 cp 01/03 16:50 Interpretation: Normal except: WBC 11.1; HGB 12.7; HCT 38.5; PLT 385; MPV 6.9; cp EOSINOPHIL % 4.8; BASO% 1.5. 10 15:43 Order name: LFT's; Complete Time: 16:49 cp 01/03 17:17 Interpretation: Normal except: GLOB 3.8; A/G 0.9. cp 01/03 15:43 Order name: Magnesium; Complete Time: 16:49 cp 01/03 15:43 Order name: NT PRO-BNP; Complete Time: 16:49 cp 01/03 17:17 Interpretation: Abnormal: NT PRO-BNP 276. cp 01/03 15:43 Order name: PT-INR; Complete Time: 16:49 cp 01/03 15:43 Order name: Troponin (emerg Dept Use Only); Complete Time: 16:49 cp 01/03 15:43 Order name: Ptt, Activated; Complete Time: 16:49 cp 01/03 18:25 Order name: Glucometer Result Nova; Complete Time: 18:54 em 01/03 19:07 Order name: Type And Screen; Complete Time: 09:58 cp 01/03 19:51 Order name: Basic Metabolic Panel; Complete Time: 09:58 EDMS 01/03 15:43 Order name: EKG; Complete Time: 15:44 cp 01/03 19:19 Order name: US Rp Exam Complete cp 01/03 19:51 Order name: CONS Physician Consult EDMS 01/03 19:51 Order name: Consistent Carb (ADA) [address] EDMS 01/03 19:51 Order name: CBC with Automated Diff EDMS 01/03 19:51 Order name: CBC with Automated Diff; Complete Time: 09:58 EDMS 01/03 19:51 Order name: Magnesium EDMS 01/03 19:51 Order name: Magnesium; Complete Time: 09:58 EDMS 01/03 19:51 Order name: Phosphorus EDMS 01/03 19:51 Order name: Phosphorus; Complete Time: 09:58 EDMS 01/03 19:51 Order name: Protime (+INR) EDMS 01/03 19:51 Order name: Protime (+INR); Complete Time: 09:58 EDMS 01/03 22:10 Order name: ABO/RH no charge; Complete Time: 09:58 EDMS 01/04 08:09 Order name: US; Complete Time: 09:58 EDMS 01/03 15:43 Order name: Cardiac monitoring; Complete Time: 16:05 cp 01/03 15:43 Order name: EKG - Nurse/Tech; Complete Time: 16:05 cp 01/03 15:43 Order name: IV Saline Lock; Complete Time: 16:06 cp 01/03 15:43 Order name: Labs collected and sent; Complete Time: 16:06 cp 01/03 15:43 Order name: O2 Per Protocol; Complete Time: 16:05 cp 01/03 15:43 Order name: O2 Sat Monitoring; Complete Time: 15:44 cp 01/03 16:23 Order name: Mock-Three way; Complete Time: 17:35 cp 01/03 16:23 Order name: Misc. Order: bladder irrigation until clear; Complete Time: 17:35 cp EC:25 Rate is 45 beats/min. Rhythm is regular. TN interval is prolonged at 272 msec. QRS cp interval is normal. QT interval is normal. T waves are Inverted in leads aVR, V2. Interpreted by me. Reviewed by me. Administered Medications: 17:05 Drug: NS 0.9% 1000 ml Route: IV; Rate: 1 bolus; Site: right antecubital; em 18:49 Follow up: IV Status: Completed infusion; IV Intake: 1000ml em 18:00 Drug: Rocephin - (cefTRIAXone) 1 grams Route: IVPB; Infused Over: 30 mins; Site: right aa5 antecubital; 18:49 Follow up: Response: No adverse reaction; IV Status: Completed infusion; IV Intake: 10mlem Point of Care Testing: Blood Glucose: 18:26 Blood Glucose: 95 mg/dL; em Ranges: Critical Glucose Levels:Adult <50 mg/dl or >400 mg/dl <40 mg/dl or >180 mg/dl Disposition: 01/04 09:58 Co-signature as Attending Physician, Milad Torres MD. rn Disposition: 01/03/19 19:07 Hospitalization ordered by Juan Luis Cole for Observation. Preliminary diagnosis are Hematuria, Urinary tract infection, site not specified. - Bed requested for Telemetry/MedSurg (observation). - Status is Observation. em - Condition is Stable. - Problem is new. - Symptoms have improved. UTI on Admission? Yes Signatures: Dispatcher [employer] [facility] Keeley Gonzalez, RN RN aj1 Ishaan Trent, GENERAL OPHTHALMOLOGIST GENERAL OPHTHALMOLOGIST em Milad Torres MD MD rn Calderon, Audri, RN RN aa5 Neel Henderson PA PA Anita Hutchins RN RN cg Corrections: (The following items were deleted from the chart) 01/03 15:39 15:31 URINALYSIS+U.LAB.BRZ ordered. [facility] EDCO 15:39 15:31 UA MICROSCOPIC+U.LAB.BRZ ordered. [facility] EDCO 21:30 19:07 Hospitalization Ordered by Juan Luis Cole MD for Observation. Preliminary cg diagnosis is Hematuria; Urinary tract infection, site not specified. Bed requested for Telemetry/MedSurg (observation). Status is Observation. Condition is Stable. Problem is new. Symptoms have improved. UTI on Admission? Yes. 01/04 05:49 01/03 21:30 01/03/2019 19:07 Hospitalization Ordered by Juan Luis Cole MD for cg Observation. Preliminary diagnosis is Hematuria; Urinary tract infection, site not specified. Bed requested for [facility] ER HOLD. Status is Observation. Condition is Stable. Problem is new. Symptoms have improved. UTI on Admission? Yes. 01/04 09:00 05:49 01/03/2019 19:07 Hospitalization Ordered by Juan Luis Cole MD for Observation. em Preliminary diagnosis is Hematuria; Urinary tract infection, site not specified. Bed requested for Telemetry/MedSurg (observation). Status is Observation. Condition is Stable. Problem is new. Symptoms have improved. UTI on Admission? Yes. cg
--- NOTE | 2019-01-03 19:08 | ER ---
Nurse's Notes [facility] Name: Lito Powell Age: 73 yrs Sex: Male : 1945 Arrival Date: 01/03/2019 Time: 15:10 Bed 20 Private MD: Diagnosis: Hematuria;Urinary tract infection, site not specified Presentation: 01/03 15:13 Presenting complaint: Patient states: "I had surgery on Dec 16, TURP, by Dr. Camarillo, I aj1 began to have bleeding when I urinate, its red, and my opinion is that they put me back on blood thinners too soon" Patient is unsure when the blood in his urine started. Transition of care: patient was not received from another setting of care. Onset of symptoms was January 03, 2019. Risk Assessment: Do you want to hurt yourself or someone else? Patient reports no desire to harm self or others. Initial Sepsis Screen: Does the patient meet any 2 criteria? No. Patient's initial sepsis screen is negative. Does the patient have a suspected source of infection? No. Patient's initial sepsis screen is negative. Care prior to arrival: None. 15:13 Method Of Arrival: Ambulatory aj 15:13 Acuity: LADONNA 3 aj1 Triage Assessment: 15:18 General: Appears in no apparent distress. comfortable, Behavior is calm, cooperative, aj1 appropriate for age. Pain: Denies pain. Neuro: Level of Consciousness is awake, alert, obeys commands. Cardiovascular: Patient's skin is warm and dry. Respiratory: Airway is patent Respiratory effort is even, unlabored, Respiratory pattern is regular, symmetrical. Historical: - Allergies: 15:18 No Known Allergies; aj1 - Home Meds: 15:18 Plavix Oral [Active]; aspirin 81 mg Oral chew [Active]; amlodipine oral [Active]; aj1 Cardizem Oral [Active]; Lantus Sub-Q [Active]; Magnesium Oxide Oral [Active]; multiple supplements [Active]; valsartan Oral [Active]; - PMHx: 15:18 BPH; CAD; Diabetes - IDDM; Hypertension; aj1 - PSHx: 15:18 TURP; aj1 - Immunization history:: Flu vaccine is not up to date. - Social history:: Smoking status: Patient/guardian denies using tobacco. - Ebola Screening: : Patient denies travel to an Ebola-affected area in the 21 days before illness onset. Screenin:32 Abuse screen: Denies threats or abuse. Nutritional screening: No deficits noted. em Tuberculosis screening: No symptoms or risk factors identified. Fall Risk None identified. Assessment: 15:30 General: Appears in no apparent distress. comfortable, Behavior is calm, cooperative, em Denies fever. Pain: Denies pain. Neuro: Level of Consciousness is awake, alert, obeys commands, Oriented to person, place, time, situation, Appropriate for age. Cardiovascular: Denies chest pain, Capillary refill < 3 seconds Patient's skin is warm and dry. Respiratory: Airway is patent Respiratory effort is even, unlabored, Respiratory pattern is regular, symmetrical. GI: Patient currently denies nausea, vomiting. : Urine is juanito blood, Reports burning with urination, urinary frequency. Derm: Skin is intact, is healthy with good turgor, Skin is pink, warm \\T\\ dry. Musculoskeletal: Capillary refill < 3 seconds, Range of motion: intact in all extremities. 15:30 Reassessment: I agree with assessment completed by Ishaan Trent LVN . aa5 16:21 Reassessment: Patient appears in no apparent distress at this time. Patient and/or em family updated on plan of care and expected duration. Pain level reassessed. Patient is alert, oriented x 3, equal unlabored respirations, skin warm/dry/pink. 18:12 Reassessment: Patient appears in no apparent distress at this time. Patient and/or em family updated on plan of care and expected duration. Pain level reassessed. Patient is alert, oriented x 3, equal unlabored respirations, skin warm/dry/pink. 19:23 Reassessment: Patient and/or family updated on plan of care and expected duration. Pain ea level reassessed. Patient is alert, oriented x 3, equal unlabored respirations, skin warm/dry/pink. General: Appears in no apparent distress. comfortable, Behavior is calm, cooperative. Pain: Denies pain. Neuro: Level of Consciousness is awake, alert, obeys commands, Oriented to person, place, time, situation. Cardiovascular: Patient's skin is warm and dry. Respiratory: Airway is patent Respiratory effort is even, unlabored, Respiratory pattern is regular, symmetrical. : Mock in place. Derm: Skin is intact, Skin is pink, warm \\T\\ dry. Musculoskeletal: Circulation, motion, and sensation intact. 01/04 08:59 Reassessment: report called to ARPIT Ray, pt moved to 231 in hospital bed with em continuous irrigation. Vital Signs: 01/03 15:18 BP 161 / 70; Pulse 50; Resp 20; Temp 97.8; Pulse Ox 98% on R/A; Weight 82.55 kg (R); aj1 Height 5 ft. 11 in. (180.34 cm) (R); Pain 0/10; 16:30 BP 165 / 72; Pulse 49; Resp 18; Pulse Ox 99% on R/A; em 18:10 BP 161 / 69; Pulse 59; Resp 18; Pulse Ox 99% on R/A; Pain 0/10; em 19:25 BP 181 / 74; Pulse 54; Resp 18; Pulse Ox 99% on R/A; ea 20:18 BP 167 / 55; Pulse 50; Resp 17; Pulse Ox 97% on R/A; mt 15:18 Body Mass Index 25.38 (82.55 kg, 180.34 cm) aj1 ED Course: 15:10 Patient arrived in ED. as 15:17 Triage completed. aj1 15:18 Arm band placed on Patient placed in an exam room. aj1 15:20 Neel Henderson PA is PHCP. cp 15:20 Milad Torres MD is Attending Physician. cp 15:31 Ishaan Trent LVN is Primary Nurse. em 15:32 Patient has correct armband on for positive identification. Placed in gown. Bed in low em position. Call light in reach. Pulse ox on. NIBP on. 15:32 Urine collected: clean catch specimen, juanito blood. em 16:00 Initial lab(s) drawn, by me, sent to lab. Inserted saline lock: 20 gauge in right em antecubital area, using aseptic technique. Blood collected. 16:25 EKG done, by ED staff. lt1 17:15 Mock cath inserted, using sterile technique, 18 Fr., by me, balloon inflated, Patient em tolerated well. 18:00 Bladder irrigated via Mock with 2 liters normal saline returned juanito blood Patient em tolerated well. 19:06 Juan Luis Cole MD is Hospitalizing Provider. cp 22:00 No provider procedures requiring assistance completed. Patient admitted, IV remains in ea place. 01/04 01:40 Bladder scan completed. 450. mt 02:10 Mock Catheter removed, Urine not draining properly. Physician notified. mt 02:17 3-way catheter inserted, using sterile technique, 18 Fr. mt Administered Medications: 01/03 17:05 Drug: NS 0.9% 1000 ml Route: IV; Rate: 1 bolus; Site: right antecubital; em 18:49 Follow up: IV Status: Completed infusion; IV Intake: 1000ml em 18:00 Drug: Rocephin - (cefTRIAXone) 1 grams Route: IVPB; Infused Over: 30 mins; Site: right aa5 antecubital; 18:49 Follow up: Response: No adverse reaction; IV Status: Completed infusion; IV Intake: 10mlem Point of Care Testing: Blood Glucose: 18:26 Blood Glucose: 95 mg/dL; em Ranges: Intake: 18:49 IV: 1000ml; Total: 1000ml. em 18:49 IV: 10ml; Total: 1010ml. em Outcome: 19:07 Decision to Hospitalize by Provider. cp 21:00 Admitted to ER Hold. Please see [facility] for further documentation. ea 21:00 Condition: stable 21:00 Instructed on the need for admit. 01/04 05:49 Patient left the ED. 09:00 Patient left the ED. em Signatures: Keeley Gonzalez, RN RN aj1 Ishaan Trent, DUMPSTER OPERATOR DUMPSTER OPERATOR em Joi Rios Audri, RN RN aa5 Neel Henderson PA PA Anita Nance, Sincere Amaro [facility] Aliya Bojorquez RN RN ea Tran, [facility]
[2019-01-03] MEDS ORDERED: ONDANSETRON 4 MG/2 ML VIAL IV PRN (19:36)
[2019-01-03] MEDS ORDERED: ACETAMINOPHEN 500 MG TAB PO PRN (19:36)
--- NOTE | 2019-01-03 19:56 | P.HP ---
Certification for Inpatient With expected LOS: >2 Midnights Patient will require the following post-hospital care: None Practitioner: I am a practitioner with admitting privileges, knowledge of patient current condition, hospital course, and medical plan of care. Services: Services provided to patient in accordance with Admission requirements found in Title 42 Section 412.3 of the Code of Federal Regulations Patient History Date of Service: 01/03/19 Reason for admission: HEMATURIA History of Present Illness: 73 yo Male with past medical history of DM, HTN, HLD , CAD s/p CABG and Stent , who had TURP done last month came to ER with dysuria and hematuria started yesterday but worsened today . Denies any fever /chills . He noticed passing clots in the urine. Associated with dysuria and frequency. He is on Plavix and on aspirin 81 mg for CAD. Denies any trauma. No abdominal pain. No dizziness. denies any chest pain or shortness of breath. He was seen in the ER and and had a Mock placed and was started on bladder irrigation with gross hematuria. Patient's symptoms admitted after bladder irrigation. His weight is signs noted to have accelerated hypertension. He has not taken his blood pressure medications tonight. He is being admitted for further monitoring of hematuria and continuous bladder irrigation. Urologist is Dr. Camarillo was already been consulted by the ER Home medications list reviewed: Yes - Past Medical/Surgical History Has patient received pneumonia vaccine in the past: No Diabetic: Yes -: DM, HTN,CAD , BPH ,HLD -: CABG -: TURP -: Stent Psychosocial/ Personal History: denies any smoking. Denies Alcohol. Lives with family - Family History Family History: Reviewed- Non-Contributory - Social History Smoking Status: Never smoker Place of Residence: Home Review of Systems 10-point ROS is otherwise unremarkable General: Weakness (c/o generalised weakness ) Cardiovascular: Other (denies any chest pain or SOB ) Genitourinary: Dysuria, Frequency, Urgency, Hematuria Physical Examination - Vital Signs Temperature: 98.6 F Blood Pressure: 182/96 Pulse: 82 Respirations: 16 Pulse Ox (%): 94 - Physical Exam General: Alert, Oriented x3, Cooperative HEENT: Atraumatic, Normocephalic Neck: Supple, JVD not distended Respiratory: Clear to auscultation bilaterally, Normal air movement Cardiovascular: Regular rate/rhythm, Normal S1 S2, Edema Capillary refill: <2 Seconds Gastrointestinal: Soft and benign Musculoskeletal: No clubbing, No erythema, No tenderness Integumentary: No rashes, No significant lesion Neurological: Normal speech, Normal strength at 5/5 x4 extr, Normal affect Lymphatics: No axilla or inguinal lymphadenopathy Urinary: Mock catheter, Other (hematuria +) External genitalia: No edema Rectal: Deferred - Studies Laboratory Data (last 24 hrs) 01/03/19 16:00: PT 11.9, INR 1.01, APTT 31.4 01/03/19 16:00: WBC 11.1 H, Hgb 12.7 L, Hct 38.5 L, Plt Count 385 D 01/03/19 16:00: Sodium 136, Potassium 4.2, BUN 22 H, Creatinine 1.18, Glucose 144 H, Magnesium 1.8, Total Bilirubin 0.4, AST 15, ALT 25, Alkaline Phosphatase 66 Assessment and Plan - Problems (Diagnosis) (1) Hematuria Onset Date: ~01/02/19 Status: Acute Plan: Hematuria Status post TURP last month Will start on continuous bladder irrigation Monitor closely Urology consult Will hold Plavix for now (2) UTI (urinary tract infection) Onset Date: ~01/03/19 Current Visit: Yes Status: Acute Plan: Will start on Rocephin Urine culture will be obtained Change antibiotic as per the sensitivity (3) S/P TURP Current Visit: Yes Status: Acute Plan: Will consult urology start on Flomax (4) Diabetes Current Visit: Yes Status: Acute Plan: Will start on insulin sliding scale Monitor Accu-Chek AC and hs will get an A1c in a.m. (5) Accelerated hypertension Current Visit: Yes Status: Acute Plan: Continue home medications Coreg and Valsartan Monitor blood pressure Hydralazine p.r.n. Coronary artery disease status post CABG and stent Will hold Plavix and aspirin for now Continue other cardiac medications Monitor under telemetry Anemia due to acute blood loss Monitor CBC daily Repeat H&H in 6 hr Transfers p.r.n. Acute renal insufficiency possibly due to dehydration Will start on IV fluid Monitor renal parameters GI/DVT prophylaxis Advanced directive full code ( discussed with the patient ) Discharge Plan: Home Plan to discharge in: 72 Hours - Advance Directives Does patient have a Living Will: No Does patient have a Durable POA for Healthcare: No - Code Status/Comfort Care Code Status: Full Code
[2019-01-03] MEDS: NA CHLORIDE 0.9% 1,000 ML IV SCH (20:00)
[2019-01-03] MEDS: CARVEDILOL 25 MG TAB PO SCH (20:00)
[2019-01-03] MEDS: VALSARTAN 80 MG TAB PO SCH (21:00)
[2019-01-03] MEDS ORDERED: CARVEDILOL 6.25 MG TAB ONE (21:34)
[2019-01-04 03:52] VITALS: BMI 26.0
[2019-01-04] MEDS ORDERED: NACL 0.9% IRR SOLN 2,000 ML IRR ONE ×3 (05:18→08:04)
[2019-01-04] MEDS: SODIUM CHL 0.9% IRR SOLN 2000 ML IRR PRN ×5 (06:00→21:22)
[2019-01-04] MEDS: CARVEDILOL 25 MG TAB PO SCH ×2 (06:00→18:03)
--- NOTE | 2019-01-04 06:15 | EKG ---
Test Date: 2019-01-03 Test Time: 16:19:28 Plaster Machine Tender: BELKIS MEASUREMENT RESULTS: Intervals: Rate: 45 MD: 272 QRSD: 84 QT: 482 QTc: 416 [place]: P: 54 MD: 272 QRS: -26 T: 36 INTERPRETIVE STATEMENTS: Sinus bradycardia with 1st degree AV block with premature atrial complexes Possible Left atrial enlargement Anterior infarct, age undetermined Abnormal ECG Compared to ECG 12/22/2018 00:06:02 Atrial premature complex(es) now present Myocardial infarct finding now present Sinus rhythm no longer present Electronically Signed On 01-04-19 06:14:34 CDT by Yadiel Vicente
[2019-01-04 06:23] LABS: Absolute Lymphocytes (CBC) 2.4 K/uL (0.7-4.9); Basophils % 0.9 % (0-1.3); Hematocrit 36.1 % (39.6-49.0); Lymphocytes % 19.1 % (15.3-44.8); MPV 6.8 fL (7.6-11.3); RBC Red Blood Cell Count 4.25 M/uL (4.33-5.43)
[2019-01-04 06:24] LABS: Protime INR 1.1
[2019-01-04 06:32] LABS: Potassium 3.7 mmol/L (3.5-5.1)
[2019-01-04] MEDS: INSULIN -REGULAR HUMAN 50 UNIT/0.5 ML ML SQ SCH ×5 (07:30→21:00)
[2019-01-04] MEDS ORDERED: INFLUENZA VACCINE (for 3y+) 0.5 ML DOSE IMVAC ONE (08:00)
--- NOTE | 2019-01-04 08:04 | RAD REPORT ---
EXAM DESCRIPTION: US - Renal Ultrasound-Complete - 01/03/2019 9:21 pm CLINICAL HISTORY: Hematuria COMPARISON: None. FINDINGS: The right kidney measures 10.4 x 4.6 x 4.8 cm. The left kidney measures 11.2 x 5.7 x 5.7 cm. Renal cortical thickness and echogenicity are normal. No hydronephrosis or suspicious renal mass. Bladder is contracted around a Mock catheter limiting assessment. IMPRESSION: No hydronephrosis or suspicious renal mass. No other significant findings.
[2019-01-04] MEDS ORDERED: CEFTRIAXONE 1 GM/NS 50 ML 1 GM/50 ML BAG IV SCH (09:00)
[2019-01-04] MEDS: VALSARTAN 80 MG TAB PO SCH ×2 (10:41→21:15)
[2019-01-04] MEDS: CEFTRIAXONE/SWI 1gm 1 GM/10 ML SYR IV SCH (10:42)
[2019-01-04] MEDS: NA CHLORIDE 0.9% 1,000 ML IV SCH ×2 (10:44→16:00)
--- NOTE | 2019-01-04 20:17 | PN ---
Date of Progress Note: 01/04/2019 Subjective: Patient seen and examined. Chart reviewed and case discussed with RN. Patient is still having some hematuria. Medications List: Reviewed. Code Status: Full. Physical Examination: Vital Signs: Temperature 97.1, heart rate 47, blood pressure 158/71, respirations 97% on room air. General: Awake, alert, oriented x3, not in any acute distress. CVS: S1, S2. No murmurs. Sinus bradycardia. Peripheral pulses present. Respiratory: Moving air well bilaterally. No wheezing or stridor. Gastrointestinal: Abdomen is soft, nontender, nondistended. Positive bowel sounds. No guarding or rigidity. Extremities: No clubbing, cyanosis, or edema. Neurologic: Nonfocal. : Urinary catheter 3-way in place with gross hematuria in the Mock catheter. Laboratory Data: Sodium 139, potassium 3.7, chloride 107, CO2 of 27, BUN 16, creatinine 1.02, glucos e 105, calcium 8.6, phosphorus 3, magnesium 2. WBC 12.5, H and H 12.2 and 36.1, platelets are 354, n eutrophils 68%. Assessment And Plan: A 73-year-old male with: 1.Gross hematuria, likely secondary to transurethral resection of the prostate and blood thinners. We will hold blood thinners for now. We will continue with bladder irrigation. Urology on board. M onitor H and H. 2.Acute cystitis with hematuria. We will continue on Rocephin. Cultures pending. 3.Status post recent transurethral resection of the prostate. Continue Flomax. Urology on board. 4.Diabetes mellitus type 2, non-insulin with hyperglycemia. We will continue Accu-Cheks and monitor blood glucose levels. 5.Accelerated hypertension. Continue Coreg and valsartan. Monitor heart rate. Patient has mild br adycardia. 6.Coronary artery disease, status post coronary artery bypass grafting and stent. Hold aspirin and Plavix for now due to gross hematuria. 7.Anemia due to acute blood loss. Monitor H and H, transfuse as needed. 8.Acute kidney injury, likely due to dehydration. We will continue to monitor. Continue IV fluids. Avoid NSAIDs. 9.Disposition: Likely discharge in the next 24 to 48 hours depending on clinical response. SA/MODL Voice ID: [id number] Report ID: [id number]
[2019-01-04] MEDS: INSULIN GLARGINE 100 UNITS/ML SQ SCH (21:15)
[2019-01-05] MEDS: NA CHLORIDE 0.9% 1,000 ML IV SCH ×3 (05:23→16:33)
[2019-01-05] MEDS: CARVEDILOL 25 MG TAB PO SCH (05:23)
[2019-01-05] MEDS: SODIUM CHL 0.9% IRR SOLN 2000 ML IRR PRN (05:24)
[2019-01-05 05:48] LABS: Absolute Lymphocytes (CBC) 2.2 K/uL (0.7-4.9); Hematocrit 33.4 % (39.6-49.0); Lymphocytes % 22.5 % (15.3-44.8); MPV 6.9 fL (7.6-11.3); RBC Red Blood Cell Count 3.92 M/uL (4.33-5.43)
[2019-01-05 06:13] LABS: Bilirubin Total 0.5 mg/dL (0.2-1.0); Potassium 3.6 mmol/L (3.5-5.1)
[2019-01-05] MEDS ORDERED: POTASSIUM CL SA 10 MEQ TAB PO ONE (09:00)
[2019-01-05] MEDS: INSULIN LISPRO 100 UNIT/1 ML SQ SCH (09:00)
--- NOTE | 2019-01-05 09:51 | CON ---
History Of Present Illness: A 73-year-old male, history of diabetes, hypertension, hyperlipidemia, coronary artery disease, CABG, TURP about a month ago. He has been on aspirin and Plavix, and developed gross hematuria. He said he has spoke to nurse. I told to continue taking his blood thinners, but he continues to bleed profusely, so he came to the emergency room. I was called this morning and told him to stop his aspirin and Plavix for few days, come to the emergency room if he is not clearing up, so he came over. Continuous bladder irrigation was placed. Urine is looking press officer than cranberry now, on CBI. His H and H are stable at 12 and 36. Recommend continuous bladder irrigation for now. Check an H and H to see how he does. Bladder ultrasound was done showing just a few minor clots in the bladder. I do not think he needs surgery at this point. Past Medical History: Diabetes, hypertension, coronary artery disease, BPH, hyperlipidemia, CABG, TURP __. Social History: Denies smoking, alcohol, drugs Family History: Negative. Review of Systems: 10-point review of systems unremarkable. Physical Examination: HEENT: Atraumatic, normocephalic. Neck: Supple. Respiratory: Clear. Cardiovascular: S1, S2. Gastrointestinal: Soft. : Mock catheter, on CBI. Laboratory Data: Reviewed. White count 12.5, H and H are 12 and 36, platelet count checked. Coags negative. Chemistry normal. Sodium 139, potassium 3.7, chloride 107, carbon dioxide 27, BUN 16, creatinine 1.0, GFR 72, glucose 105. Urine positive for nitrite, positive for esterase. Urine culture is pending. Patient is on Rocephin. Assessment: Patient is status post Transurethral resection of the prostate and now presents with gross hematuria. A 3-way Mock catheter in place. He is on continuous bladder irrigation. Renal / bladder ultrasound was done, possibly showing some minor clots in the bladder. Awaiting urine culture. Continue IV Rocephin for now. Continue continuous bladder irrigation. We will re-evaluate the patient in 24 hours. ALISE/ANTONIO Voice ID: [id number] Report ID: [id number] NELSY
[2019-01-05] MEDS: AMLODIPINE 5 MG TAB PO SCH (10:03)
[2019-01-05] MEDS: CEFTRIAXONE/SWI 1gm 1 GM/10 ML SYR IV SCH (10:03)
[2019-01-05] MEDS: VALSARTAN 80 MG TAB PO SCH ×2 (10:04→20:52)
[2019-01-05] MEDS: INSULIN GLARGINE 100 UNITS/ML SQ SCH ×2 (10:04→20:51)
[2019-01-05] MEDS: INSULIN -REGULAR HUMAN 50 UNIT/0.5 ML ML SQ SCH ×4 (10:08→20:47)
--- NOTE | 2019-01-05 14:30 | RAD REPORT ---
EXAM DESCRIPTION: RAD - Chest Single View - 01/05/2019 2:20 pm CLINICAL HISTORY: Cough, bronchitis COMPARISON: December 22 TECHNIQUE: AP portable chest image was obtained 1421 hours . FINDINGS: No peripheral mass or consolidation. Hilar granulomatous calcifications are present on the right. Heart and vasculature are normal. No measurable pleural effusion and no pneumothorax. No acut e bony abnormality seen. No acute aortic findings suspected. IMPRESSION: No acute cardiopulmonary process. No significant change from comparison.
--- NOTE | 2019-01-05 16:29 | PN ---
Patient is doing well. Urine is grossly bloody when the flow rate is slowed down. We are going to tremaine nuno to do a cysto clot evacuation, fulguration on the patient tomorrow. We will make him n.p.o. afte r midnight. Hemoglobin and hematocrit today were 11.4 and 33.4. Coags are normal. Chemistry is nor mal. Sodium 139, potassium 3.6, chloride 108, carbon dioxide 25, BUN 16, creatinine 1.0, GFR 72, glu cose 118, calcium 8.0. UA did show signs of infection, but no culture was set up. So, currently the patient is on IV Rocephin and his white count has come down somewhat. ALISE/MODL Voice ID: [id number] Report ID: [id number]
--- NOTE | 2019-01-05 18:39 | PN ---
Date of Progress Note: 01/05/2019 Subjective: Patient seen and examined. Chart reviewed and case discussed with RN and Dr. Camarillo. Rohit nagy continues to have gross hematuria and now leaking around the Mock catheter. Medications: List reviewed. Physical Examination: Vital Signs: Temperature 97.8, heart rate 61, blood pressure 176/77, respirations 17, O2 96% on room air. General: Awake, alert, oriented x3. Elderly male, awake, somewhat ill appearing. CV: S1, S2. Regular rate and rhythm. Peripheral pulses present. Respiratory: Moving air well bilaterally. No wheezing or stridor. Gastrointestinal: Abdomen is soft, nontender, nondistended. Positive bowel sounds. Extremities: No clubbing, cyanosis, or edema. Neurologic: Nonfocal. Urinary: Mock catheter in place with gross hematuria. Laboratory Data: Sodium 139, potassium 3.6, chloride 108, CO2 of 25, BUN 16, creatinine 1.01, glucos e 118, calcium 8. WBC 9.9, H and H 11.4 and 33.4, platelets 327. Assessment: A 73-year-old male with; 1.Gross hematuria likely secondary to transurethral resection of the prostate and patient is on bloo d thinners at home. We will continue with bladder irrigation. Appreciate Dr. Camarillo's input. He may need to go back to the OR. Continue to monitor H and H. 2.Acute cystitis with hematuria. Continue Rocephin. Urine cultures pending at this time. 3.Recent transurethral resection of the prostate. We will continue Flomax. 4.Diabetes mellitus type 2, oxt-guiymbw-dcyrvpnwr with hyperglycemia. We will continue Accu-Cheks a nd continue sliding scale insulin. 5.Accelerated hypertension, improved. 6.Coronary artery disease, status post coronary artery bypass graft and stent. Currently holding as pirin and Plavix due to gross hematuria. Plan: Likely discharge in the next 24 to 48 hours depending on clinical response and improvement in hematuria. SA/MODL Voice ID: [id number] Report ID: [id number]
[2019-01-06] MEDS: D50W 25 GM/50 ML SYRINGE IV PRN ×2 (01:54→09:35)
[2019-01-06] MEDS: NA CHLORIDE 0.9% 1,000 ML IV SCH ×3 (03:00→18:15)
[2019-01-06 05:59] LABS: Absolute Lymphocytes (CBC) 2.3 K/uL (0.7-4.9); Basophils % 1.3 % (0-1.3); Hematocrit 29.3 % (39.6-49.0); Lymphocytes % 26.6 % (15.3-44.8); MPV 6.9 fL (7.6-11.3); RBC Red Blood Cell Count 3.46 M/uL (4.33-5.43)
[2019-01-06] MEDS: INSULIN -REGULAR HUMAN 50 UNIT/0.5 ML ML SQ SCH ×4 (07:30→20:50)
[2019-01-06 08:01] LABS: Albumin 2.6 g/dL (3.4-5.0); Bilirubin Total 0.4 mg/dL (0.2-1.0); Potassium 3.6 mmol/L (3.5-5.1); Protein, Total 5.6 g/dL (6.4-8.2)
[2019-01-06] MEDS: INSULIN LISPRO 100 UNIT/1 ML SQ SCH (09:00)
[2019-01-06] MEDS: INSULIN GLARGINE 100 UNITS/ML SQ SCH ×2 (09:00→20:54)
[2019-01-06] MEDS: VALSARTAN 80 MG TAB PO SCH ×2 (09:17→20:52)
[2019-01-06] MEDS: CARVEDILOL 25 MG TAB PO SCH (09:17)
[2019-01-06] MEDS: CEFTRIAXONE/SWI 1gm 1 GM/10 ML SYR IV SCH (09:17)
[2019-01-06] MEDS: AMLODIPINE 5 MG TAB PO SCH (09:25)
[2019-01-06] MEDS: SODIUM CHL 0.9% IRR SOLN 2000 ML IRR PRN ×2 (09:31→20:56)
[2019-01-06] MEDS ORDERED: PROPOFOL 200 MG/20 ML VIAL IV ONE (11:30)
[2019-01-06] MEDS ORDERED: LIDOCAINE 1% MPF 5 ML VIAL ONE (11:30)
[2019-01-06] MEDS ORDERED: FENTANYL CITR 100 MCG/2 ML ONE (11:30)
[2019-01-06] MEDS ORDERED: MIDAZOLAM HCL 2 MG/2 ML INJ ONE (11:30)
[2019-01-06] MEDS ORDERED: NA CHLORIDE 0.9% 1,000 ML ONE (11:38)
[2019-01-06] MEDS ORDERED: GLYCOPYRROLATE 0.2 MG/ML SYR ONE ×2 (11:50→11:51)
[2019-01-06] MEDS ORDERED: EPHEDRINE SULF 50 MG/ML VIAL ONE (12:07)
--- NOTE | 2019-01-06 15:36 | P.PN ---
Subjective Date of Service: 01/06/19 Chief Complaint: HEMATURIA Bladder irrigation in place with blood tinged urine. Patient denies any pain. He has been afebrile. Physical Examination - Vital Signs Temperature: 97.6 F Blood Pressure: 138/58 Pulse: 67 Respirations: 20 Pulse Ox (%): 97 - Physical Exam General: Alert, In no apparent distress, Oriented x3 HEENT: Normocephalic, PERRLA, Mucous membr. moist/pink Neck: Supple, JVD not distended Respiratory: Clear to auscultation bilaterally, Normal air movement Cardiovascular: No edema, Normal pulses, Regular rate/rhythm, Normal S1 S2 Capillary refill: <2 Seconds Gastrointestinal: Normal bowel sounds, Soft and benign, Non-distended, No tenderness Musculoskeletal: No clubbing, No swelling Integumentary: No rashes Neurological: Normal speech, Normal strength at 5/5 x4 extr Urinary: Other (Three-way catheter in place.) Assessment And Plan - Current Problems (Diagnosis) (1) Hematuria Onset Date: ~01/02/19 Current Visit: Yes Status: Acute (2) S/P TURP Current Visit: Yes Status: Acute (3) UTI (urinary tract infection) Onset Date: ~01/03/19 Current Visit: Yes Status: Acute (4) Accelerated hypertension Current Visit: Yes Status: Acute (5) Diabetes Current Visit: Yes Status: Acute - Plan Patient taken to OR for cysto clot extraction today. Bladder irrigation per Urology. Urine culture: no growth Discontinue antibiotics. IV hydration Diet as tolerated Continue current antihypertensive Continue to monitor H&H and transfuse p.r.n. Continue to hold aspirin and plavix.
[2019-01-06] MEDS ORDERED: POTASSIUM CL SA 10 MEQ TAB PO ONE (16:00)
[2019-01-07] MEDS ORDERED: GUAIFENESIN/CODEINE 5ML UCUP PO PRN (02:59)
[2019-01-07] MEDS: NA CHLORIDE 0.9% 1,000 ML IV SCH ×2 (04:00→14:00)
[2019-01-07 06:45] LABS: Albumin 2.6 g/dL (3.4-5.0); Bilirubin Total 0.4 mg/dL (0.2-1.0); Potassium 3.8 mmol/L (3.5-5.1); Protein, Total 5.7 g/dL (6.4-8.2)
[2019-01-07 07:20] LABS: Absolute Lymphocytes (CBC) 1.9 K/uL (0.7-4.9); Basophils % 1.3 % (0-1.3); Hematocrit 30.6 % (39.6-49.0); Lymphocytes % 20.5 % (15.3-44.8); MPV 7.5 fL (7.6-11.3)
[2019-01-07] MEDS: INSULIN -REGULAR HUMAN 50 UNIT/0.5 ML ML SQ SCH ×2 (07:30→12:09)
[2019-01-07] MEDS ORDERED: POTASSIUM CL SA 10 MEQ TAB PO ONE (09:00)
[2019-01-07] MEDS: INSULIN LISPRO 100 UNIT/1 ML SQ SCH (09:00)
[2019-01-07] MEDS: INSULIN GLARGINE 100 UNITS/ML SQ SCH (09:42)
[2019-01-07] MEDS: AMLODIPINE 5 MG TAB PO SCH (09:43)
[2019-01-07] MEDS: CARVEDILOL 25 MG TAB PO SCH (09:43)
[2019-01-07] MEDS: VALSARTAN 80 MG TAB PO SCH (09:44)
[2019-01-07 10:33] VITALS: O2SAT 97
[2019-01-07 14:20] VITALS: BP 164/75; TEMP 97.1
--- NOTE | 2019-01-07 14:32 | PN ---
Subjective: Patient is doing fine today. Urine is pretty much clear. I went ahead and removed his Mock catheter. He will drink some water, void and go home. I can see him in about a month. He is to restart his anticoagulation next week. ALISE/ANTONIO Voice ID: [id number] Report ID: [id number] NELSY
--- NOTE | 2019-01-07 19:44 | P.DS ---
Admission Date: 01/03/19 Discharge Date: 01/07/19 Disposition: [place] HOME/HOME HEALTH CARE Discharge Condition: FAIR Reason for Admission: HEMATURIA - Problems (1) Hematuria Onset Date: ~01/02/19 Status: Acute (2) S/P TURP Status: Acute (3) UTI (urinary tract infection) Onset Date: ~01/03/19 Status: Acute (4) Accelerated hypertension Status: Acute (5) Diabetes Status: Acute Brief History of Present Illness: 73-year-old man with a history of BPH status post TURP presented with hematuria with clot. He was on aspirin and Plavix for CAD. Bladder irrigation via three- way Mock was started in the ED. Urology was consulted and patient was subsequently admitted for further management. Hospital Course: His bladder was irrigated via three-way Mock. Patient was seen by Dr. Camarillo, cystoscopy was performed and bleeding sites in the bladder cauterized. Patient was monitored overnight, no further gross hematuria noted. He was deemed clinically stable for discharge with home health by urology. He is asked to continue ciprofloxacin which was previously prescribed to be taken for 10 days. He will follow with Dr. Camarillo as outpatient. Vital Signs/Physical Exam: Temp Pulse Resp BP Pulse Ox 97.1 F 52 18 164/75 H 96 01/07/19 12:00 01/07/19 12:00 01/07/19 12:00 01/07/19 12:00 01/07/19 12:00 General: Alert, In no apparent distress, Oriented x3 HEENT: Mucous membr. moist/pink Neck: 2+ carotid pulse no bruit, JVD not distended Respiratory: Clear to auscultation bilaterally, Normal air movement Cardiovascular: No edema, Normal pulses, Regular rate/rhythm Gastrointestinal: Normal bowel sounds, Soft and benign, Non-distended Musculoskeletal: No clubbing, No swelling Integumentary: No rashes Neurological: Normal strength at 5/5 x4 extr, Cranial nerves 3-12 intact Urinary: Mock catheter (Three-way Mock.) Laboratory Data at Discharge: WBC 9.5 K/uL (4.3-10.9) 01/07/19 05:46 Hgb 10.4 g/dL (13.6-17.9) L 01/07/19 05:46 Hct 30.6 % (39.6-49.0) L 01/07/19 05:46 Plt Count 310 K/uL (152-406) 01/07/19 05:46 PT 12.9 SECONDS (9.5-12.5) H 01/04/19 06:00 INR 1.10 01/04/19 06:00 APTT 31.4 SECONDS (24.3-36.9) 01/03/19 16:00 Sodium 141 mmol/L (136-145) 01/07/19 05:46 Potassium 3.8 mmol/L (3.5-5.1) 01/07/19 05:46 BUN 9 mg/dL (7-18) 01/07/19 05:46 Creatinine 0.98 mg/dL (0.55-1.3) 01/07/19 05:46 Glucose 127 mg/dL (74-106) H 01/07/19 05:46 Phosphorus 3.0 mg/dL (2.5-4.9) 01/04/19 06:00 Magnesium 2.0 mg/dL (1.8-2.4) 01/04/19 06:00 Total Bilirubin 0.4 mg/dL (0.2-1.0) 01/07/19 05:46 AST 9 U/L (15-37) L 01/07/19 05:46 ALT 14 U/L (12-78) 01/07/19 05:46 Alkaline Phosphatase 53 U/L (45-117) 01/07/19 05:46 Home Medications: Amlodipine [Norvasc*] 5 mg PO DAILY 01/04/19 Carvedilol [Coreg*] 25 mg PO DAILY 01/04/19 Insulin Glargine,Hum.rec.anlog [Lantus Solostar] 25 units SQ BID 01/04/19 Insulin Lispro [Humalog Kwikpen U-100] 18 units SQ DAILY 01/04/19 Cefuroxime Axetil [Cefuroxime] 500 mg PO BID 7 Days #14 tab 01/07/19 Guaifenesin [Cough Syrup] 5 ml PO Q6H PRN 7 Days #1 bottle 01/07/19 New Medications: Cefuroxime Axetil [Cefuroxime] 500 mg PO BID 7 Days #14 tab Guaifenesin [Cough Syrup] 5 ml PO Q6H PRN 7 Days #1 bottle PRN Reason: Cough Diet: ADA Activity: Ad jessica Followup: Elizabeth Camarillo MD [ACTIVE - CAN ADMIT] -
== END 2019-01-07 14:32 | disposition home health service (06) | DRG 988 ==
LOC: ER 15:08 → ERHOLD 19:41 → 2ND 01-04 08:42
PROVIDERS: ADMIT Family Medicine; ATTEND Family Medicine
PROC: 0TCB8ZZ Extirpation of Matter from Bladder, Via Natural or Artificial Opening Endoscopic (ICD-10-PCS; 2019-01-06)
PROC: 0VT08ZZ Resection of Prostate, Via Natural or Artificial Opening Endoscopic (ICD-10-PCS; principal; 2019-01-06 11:00)
DX: N99.820 Postprocedural hemorrhage of a genitourinary system organ or structure following a genitourinary system procedure (principal); N30.01 Acute cystitis with hematuria; D62 Acute posthemorrhagic anemia; I25.810 Atherosclerosis of coronary artery bypass graft(s) without angina pectoris; N17.9 Acute kidney failure, unspecified; I10 Essential (primary) hypertension; E11.65 Type 2 diabetes mellitus with hyperglycemia; E86.0 Dehydration; Z79.82 Long term (current) use of aspirin; Z79.02 Long term (current) use of antithrombotics/antiplatelets; Z98.890 Other specified postprocedural states
CPT/HCPCS: 36415; 51700; 51702; 71045; 76770; 80048; 80053; 80076; 81001; 82962; 83735; 83880; 84100; 84484; 85025; 85610; 85730; 86850; 86900; 86901; 87086; 87088; 88300; 88305; 93005; 94760; 96361; 96365; 99285; J0696; J1815; J2250; J2704; J3010; J7030

== ENCOUNTER 2019-10-06 00:16 | Emergency (ER) | payer OTHER ==
--- OUTSIDE RECORDS SUMMARY | 2019-10-06 00:19 | XMS REPORT | Continuity of Care Document ---
:1945 Author Organization [facility] t Address [address] [place] [address] Care Team Providers Name Role Phone Unavailable Unavailable Unavailable Problems This patient has no known problems. Allergies, Adverse Reactions, Alerts This patient has no known allergies or adverse reactions. Medications This patient has no known medications. Procedures This patient has no known procedures. Results This patient has no known results.
[2019-10-06] MEDS ORDERED: LIDOCAINE VISCOUS 2% SOLN 15 ML UDC ONE (01:09)
[2019-10-06] MEDS ORDERED: NACL 0.9% IRR SOLN 2,000 ML IRR ONE (01:09)
[2019-10-06 01:32] LABS: Urine Culture Reflex Order NOT NEEDED; Urine RBC TNTC /HPF (NONE SEEN)
[2019-10-06 01:33] LABS: Urine Bacteria 20-50 /HPF (NONE SEEN)
[2019-10-06 01:34] LABS: Urine Blood 3+ (NEG); Urine Glucose TRACE (NEG); Urine Protein 3+ (NEG); Urine Specific Gravity 1.005 (1.005-1.030); Urine pH >8.5 (5.0-7.0)
[2019-10-06] MEDS ORDERED: CIPROFLOXACIN HCL 500 MG TAB ONE (02:01)
--- NOTE | 2019-10-06 02:12 | EDPHYS ---
Physician Documentation [facility] Name: Lito Powell Age: 74 yrs Sex: Male : 1945 Arrival Date: 10/06/2019 Time: 00:23 Bed 13 Private MD: Peter Melendez B ED Physician Ray Dewitt HPI: 10/05 01:41 This 74 yrs old Male presents to ER via Ambulatory with complaints of Urinary jr8 Problem. 01:41 The patient presents with urinary symptoms, dribbling of urine, hematuria. Onset: The jr8 symptoms/episode began/occurred acutely, today. Modifying factors: The symptoms are alleviated by nothing, the symptoms are aggravated by nothing. Associated signs and symptoms: The patient has no apparent associated signs or symptoms. Severity of symptoms: At their worst the symptoms were moderate, in the emergency department the symptoms are unchanged. The patient has experienced a previous episode. The patient has been recently seen by a physician:. Patient had recent prostate biopsy on 15 of last month. Negative for cancer cells. Stated that he started back on his plavix and aspirin recent. Now having hematuria today that is causing decreased urination . Historical: - Allergies: 00:37 No Known Allergies; sg - PMHx: 00:37 BPH; CAD; Diabetes - IDDM; Hypertension; sg - PSHx: 00:37 TURP; sg - Immunization history:: Adult Immunizations up to date. - Social history:: Smoking status: Patient denies any tobacco usage or history of. ROS: 01:41 Eyes: Negative for injury, pain, redness, and discharge, ENT: Negative for injury, jr8 pain, and discharge, Neck: Negative for injury, pain, and swelling, Cardiovascular: Negative for chest pain, palpitations, and edema, Respiratory: Negative for shortness of breath, cough, wheezing, and pleuritic chest pain, Abdomen/GI: Negative for abdominal pain, nausea, vomiting, diarrhea, and constipation, Back: Negative for injury and pain, MS/Extremity: Negative for injury and deformity, Skin: Negative for injury, rash, and discoloration, Neuro: Negative for headache, weakness, numbness, tingling, and seizure. 01:41 : Positive for urinary symptoms, small amounts, hematuria, burning with urination. Exam: 01:41 Eyes: Pupils equal round and reactive to light, extra-ocular motions intact. Lids and jr8 lashes normal. Conjunctiva and sclera are non-icteric and not injected. Cornea within normal limits. Periorbital areas with no swelling, redness, or edema. ENT: Nares patent. No nasal discharge, no septal abnormalities noted. Tympanic membranes are normal and external auditory canals are clear. Oropharynx with no redness, swelling, or masses, exudates, or evidence of obstruction, uvula midline. Mucous membranes moist. Neck: Trachea midline, no thyromegaly or masses palpated, and no cervical lymphadenopathy. Supple, full range of motion without nuchal rigidity, or vertebral point tenderness. No Meningismus. Cardiovascular: Regular rate and rhythm with a normal S1 and S2. No gallops, murmurs, or rubs. Normal PMI, no JVD. No pulse deficits. Respiratory: Lungs have equal breath sounds bilaterally, clear to auscultation and percussion. No rales, rhonchi or wheezes noted. No increased work of breathing, no retractions or nasal flaring. Abdomen/GI: Soft, non-tender, with normal bowel sounds. No distension or tympany. No guarding or rebound. No evidence of tenderness throughout. Back: No spinal tenderness. No costovertebral tenderness. Full range of motion. Skin: Warm, dry with normal turgor. Normal color with no rashes, no lesions, and no evidence of cellulitis. MS/ Extremity: Pulses equal, no cyanosis. Neurovascular intact. Full, normal range of motion. Neuro: Awake and alert, GCS 15, oriented to person, place, time, and situation. Cranial nerves II-XII grossly intact. Motor strength 5/5 in all extremities. Sensory grossly intact. Cerebellar exam normal. Normal gait. 01:41 : CVA tenderness, is absent, Male external genitalia: normal, Bladder: distension, that is mild. Vital Signs: 00:35 Pulse 75; Resp 16; Pulse Ox 100% on R/A; sg 00:40 BP 136 / 75; rv 02:15 BP 128 / 78; Pulse 81; Resp 16; Temp 98.4; Pulse Ox 99% on R/A; rv MDM: 00:34 Patient medically screened. jr8 01:57 Data reviewed: vital signs, nurses notes, lab test result(s). Data interpreted: Pulse jr8 oximetry: on room air is 100 %. Interpretation: normal. Counseling: I had a detailed discussion with the patient and/or guardian regarding: the historical points, exam findings, and any diagnostic results supporting the discharge/admit diagnosis, lab results, the need for outpatient follow up, a urologist, to return to the emergency department if symptoms worsen or persist or if there are any questions or concerns that arise at home. Response to treatment: the patient's symptoms have markedly improved after treatment. ED course: Patient feeling better post dueñas and irrigation. Light blood tinged urine noted now. Improved since earlier. Will keep dueñas in and patient to see Dr. Camarillo in next 24-48 hours. Will treat the bacteria in urine. If worse knows to come back . 10/05 00:38 Order name: Urine Microscopic Only; Complete Time: 01:39 jr8 10/05 01:19 Order name: Urine Culture ds4 10/05 00:38 Order name: Urine Dipstick-Ancillary (obtain specimen); Complete Time: 01:19 jr8 10/05 01:20 Order name: Urine Dipstick--Ancillary (enter results); Complete Time: 01:39 ds4 10/05 00:38 Order name: Bladder Scanner; Complete Time: 00:49 jr8 Administered Medications: 01:49 Not Given (Physician Discretion): Rocephin 1 grams IV at calculated rate once; Given jr8 slow IV push per pharmacy instructions 01:59 Drug: Cipro 500 mg Route: PO; rv 02:29 Follow up: Response: No adverse reaction rv Disposition: 02:40 Co-signature as Attending Physician, Ray Dewitt MD. pkl Disposition: 10/06/19 02:11 Discharged to Home. Impression: Hematuria, Retention of urine, Urinary tract infection, site not specified. - Condition is Stable. - Discharge Instructions: Dueñas Catheter Care, Adult, Hematuria, Adult, Urinary Tract Infection, Adult. - Prescriptions for Cipro 500 mg Oral Tablet - take 1 tablet by ORAL route every 12 hours for 10 days; 20 tablet. - Medication Reconciliation Form, Thank You Letter, Antibiotic Education, Prescription Opioid Use form. - Follow up: Elizabeth Camarillo; When: 1 - 2 days; Reason: Recheck today's complaints, Continuance of care, Re-evaluation by your physician. - Problem is new. - Symptoms have improved. Signatures: Dispatcher [employer] EDJuni Hernandez RN RN Ray Lennon MD MD pkl Roszak, Josh, PA PA jr8 Silvino Copeland, RN RN rv Corrections: (The following items were deleted from the chart) 02:29 02:11 10/06/2019 02:11 Discharged to Home. Impression: Hematuria; Retention of urine; rv Urinary tract infection, site not specified. Condition is Stable. Discharge Instructions: Dueñas Catheter Care, Adult, Hematuria, Adult, Urinary Tract Infection, Adult. Prescriptions for Cipro 500 mg Oral Tablet - take 1 tablet by ORAL route every 12 hours for 10 days; 20 tablet. and Forms are Medication Reconciliation Form, Thank You Letter, Antibiotic Education, Prescription Opioid Use. Follow up: Elizabeth Camarillo; When: 1 - 2 days; Reason: Recheck today's complaints, Continuance of care, Re-evaluation by your physician. Problem is new. Symptoms have improved. jr8
--- NOTE | 2019-10-06 02:12 | ER ---
Nurse's Notes [facility] Name: Lito Powell Age: 74 yrs Sex: Male : 1945 Arrival Date: 10/06/2019 Time: 00:23 Bed 13 Private MD: Peter Melendez B Diagnosis: Hematuria;Retention of urine;Urinary tract infection, site not specified Presentation: 10/05 00:35 Chief complaint: Patient states: little bit of urgency but it kind of feels like I am sg not emptying my bladder completely, last year had some issues with blood in the urine, this is similar to then. Coronavirus screen: Proceed with normal triage. Ebola Screen: Patient negative for fever greater than or equal to 101.5 degrees Fahrenheit, and additional compatible Ebola Virus Disease symptoms Patient denies exposure to infectious person. Patient denies travel to an Ebola-affected area in the 21 days before illness onset. No symptoms or risks identified at this time. Initial Sepsis Screen: Does the patient meet any 2 criteria? No. Patient's initial sepsis screen is negative. Does the patient have a suspected source of infection? Yes: Dysuria/Frequency/Urgency/UTI. Risk Assessment: Do you want to hurt yourself or someone else? Patient reports no desire to harm self or others. Onset of symptoms was October 06, 2019. Care prior to arrival: None. Mechanism of Injury: No Mechanism of Injury. Transition of care: patient was not received from another setting of care. 00:35 Method Of Arrival: Ambulatory sg 00:35 Acuity: LADONNA 3 sg Historical: - Allergies: 00:37 No Known Allergies; sg - PMHx: 00:37 BPH; CAD; Diabetes - IDDM; Hypertension; sg - PSHx: 00:37 TURP; sg - Immunization history:: Adult Immunizations up to date. - Social history:: Smoking status: Patient denies any tobacco usage or history of. Screenin:40 Abuse screen: Denies threats or abuse. Denies injuries from another. Nutritional rv screening: No deficits noted. Tuberculosis screening: No symptoms or risk factors identified. Fall Risk None identified. Assessment: 01:00 General: Appears uncomfortable, Behavior is calm, cooperative. rv 01:00 Pain: Denies pain. Neuro: Level of Consciousness is awake, alert, obeys commands, rv Oriented to person, place, time, situation. Cardiovascular: Patient's skin is warm and dry. Respiratory: Airway is patent. : Urine is juanito blood, Reports inability to void, since today urgency. 02:28 Reassessment: urine output is pinkish to light red. updated Roszak. discharged rv ambulatory with catheter in placed. Vital Signs: 00:35 Pulse 75; Resp 16; Pulse Ox 100% on R/A; sg 00:40 BP 136 / 75; rv 02:15 BP 128 / 78; Pulse 81; Resp 16; Temp 98.4; Pulse Ox 99% on R/A; rv ED Course: 00:23 Patient arrived in ED. es 00:24 Peter Melendez MD is Private Physician. es 00:33 Silvino Copeland, [facility] is Primary Nurse. rv 00:34 Yassine Navarro PA is PHCP. jr8 00:34 Ray Dewitt MD is Attending Physician. jr8 00:35 Arm band placed on. sg 00:36 Triage completed. sg 01:19 Urine Microscopic Only Sent. ds4 01:20 Bladder scan completed. 148ml. rv 01:21 Urine Culture Sent. ds4 01:21 Urine Dipstick--Ancillary (enter results) Sent. ds4 01:30 3-way catheter inserted, using sterile technique, 18 Fr. Specimen obtained. bladder rv irrigation ongoing. 01:40 Patient has correct armband on for positive identification. Pulse ox on. NIBP on. rv 02:11 Elizabeth Camarillo MD is Referral Physician. jr8 02:28 No provider procedures requiring assistance completed. Patient did not have IV access rv during this emergency room visit. Administered Medications: 01:49 Not Given (Physician Discretion): Rocephin 1 grams IV at calculated rate once; Given jr8 slow IV push per pharmacy instructions 01:59 Drug: Cipro 500 mg Route: PO; rv 02:29 Follow up: Response: No adverse reaction rv Outcome: 02:11 Discharge ordered by . jr8 02:28 Discharged to home ambulatory. rv 02:28 Condition: good 02:28 Discharge instructions given to patient, Instructed on discharge instructions, follow up and referral plans. medication usage, Demonstrated understanding of instructions, follow-up care, medications, Prescriptions given X 1. 02:29 Patient left the ED. rv Addendum: 10/12/2019 07:36 Addendum: Culture Results: Positive urine culture. No further action required. Bacteria s g sensitive to prescribed antibiotic. Signatures: Juni Tim, RN RN Morenita Jimenez Josh, PA PA jr8 Rod Webb ds4 Silvino Copeland, RN RN rv
[2019-10-06 02:40] VITALS: BP 128/78; TEMP 98.4; O2SAT 99
== END 2019-10-06 02:29 | disposition home or self-care (01) ==
LOC: ER 00:16
DX: N39.0 Urinary tract infection, site not specified (principal); R31.9 Hematuria, unspecified; I10 Essential (primary) hypertension; Z79.01 Long term (current) use of anticoagulants; Z79.82 Long term (current) use of aspirin
CPT/HCPCS: 81003; 81015; 87077; 87086; 87088; 87186; 99284